=== PATIENT | female | born 1950 | race Caucasian/White ===

== ENCOUNTER 2020-03-19 14:39 | Outpatient (CLI) | payer MEDICARE, SELFPAY ==
--- NOTE | ~2020-03-19 | MR_ITS ---
EXAMINATION: MR lumbar spine wo con DATE: 03/19/2020 15:21 INDICATION: Radiculopathy, lumbar region. TECHNIQUE: Magnetic resonance imaging (MRI) of the lumbar spine was performed without intravenous con trast. Sequences included sagittal T2-weighted FSE, sagittal T2-weighted FS FSE, sagittal T1-weighted FSE, and axial T2-weighted FSE. COMPARISON: None FINDINGS: There is 3 mm anterolisthesis of L4 on L5. Vertebral body heights are normal. Intervertebra l disc heights are normal. The distal spinal cord signal intensity is normal. The conus medullaris is at L1. The following disc levels are specifically discussed: L1-L2: The disc is bulging. There is no facet joint osteoarthritis. There is no neural foraminal sten osis. There is mild central canal stenosis. L2-L3: The disc is bulging. There is mild bilateral facet joint osteoarthritis. There is mild bilater al neural foraminal stenosis. There is mild central canal stenosis. L3-L4: The disc is bulging. There is mild right and moderate left facet joint osteoarthritis. There i s mild bilateral neural foraminal stenosis. There is mild central canal stenosis. L4-L5: The disc does not extend beyond the endplate margin. There is severe bilateral facet joint ost eoarthritis. There is mild bilateral neural foraminal stenosis. There is no central canal stenosis. L5-S1: The disc is bulging. There is severe bilateral facet joint osteoarthritis. There is mild bilat eral neural foraminal stenosis. There is no central canal stenosis. IMPRESSION: 1. Mild lumbar spondylosis. Reviewed, dictated and finalized at location A. IMPRESSION: 1. Mild lumbar spondylosis.
== END 2020-03-19 14:40 | disposition home or self-care (01) ==
PROVIDERS: PCP Physician Assistant; Visit Provider Orthopaedic Surgery
DX: M47.26 Other spondylosis with radiculopathy, lumbar region (principal)
CPT/HCPCS: 72148

== ENCOUNTER 2021-06-28 11:38 | Outpatient (CLI) | payer MEDICARE, SELFPAY ==
--- NOTE | 2021-06-28 12:40 | ECG_ITS ---
Measurements Intervals [place] Rate: 79 P: 45 [place]: 151 QRS: -15 QRSD: 93 T: 13 QT: 351 QTc: 403 Interpretive Statements SINUS RHYTHM POSSIBLE LEFT ATRIAL ENLARGEMENT LOW QRS VOLTAGE IN PRECORDIAL LEADS POOR R WAVE PROGRESSION, ANTERIOR LEADS BORDERLINE T WAVE ABNORMALITY- ANTERIOR LEADS BASELINE ARTIFACT- I, III, AVL, AVF BORDERLINE ECG Electronically Signed On 06-28-2021 12:58:49 CREW LEADER/CONTROL ROOM OPERATOR by Khanh Fernandes D.O.
[2021-06-28 13:10] LABS: Basophils Absolute Auto 0.1 K/mm3 (0.0-0.1); Basophils Percent Auto 0.9 % (0.2-1.2); Eosinophils Absolute Auto 0.2 K/mm3 (0-0.3); Eosinophils Percent Auto 2.3 % (0-4.4); Hematocrit 44.4 % (37.0-47.0); Hemoglobin 14.4 g/dL (12.0-15.0); Immature Granulocyte Absolute 0.01 K/mm3 (0.00-0.031); Immature Granulocyte Percent A 0.1 % (0-0.5); Lymphocytes Absolute Auto 1.99 K/mm3 (0.9-3.2); Lymphocytes Percent Auto 28.6 % (18.3-44.2); Mean Corpuscular HGB Conc 32.4 g/dl (32-36); Mean Corpuscular Hemoglobin 30.3 pg (26-34); Mean Corpuscular Volume 93.3 fl (80-100); Mean Platelet Volume 10.3 fl (7.4-10.4); Monocytes Absolute Auto 0.7 K/mm3 (0.1-0.6); Monocytes Percent Auto 10.5 % (2.6-8.5); Neutrophils Percent Auto 57.6 % (45.5-73.1); Platelet Count Result 335 k/mm3 (150-375); Red Blood Count 4.76 M/mm3 (4.2-5.4); Red Cell Distribution Width 12.4 % (11.5-14.5)
== END 2021-06-28 11:39 | disposition home or self-care (01) ==
LOC: ANHSURGERY 11:43
PROVIDERS: PCP Physician Assistant; Visit Provider Orthopaedic Surgery
DX: M17.12 Unilateral primary osteoarthritis, left knee (principal); I10 Essential (primary) hypertension; Z01.818 Encounter for other preprocedural examination; R94.31 Abnormal electrocardiogram [ECG] [EKG]
CPT/HCPCS: 36415; 85025; 93005

== ENCOUNTER 2021-07-13 00:43 | Day surgery (SDC) | payer MEDICARE, SELFPAY ==
[2021-06-28 11:56] VITALS: BMI 31.5
--- NOTE | 2021-06-28 12:19 | PC.NURSE ---
Report to the Outpatient Waiting Room, entrance under the green pavilion located off [facility], at time _1130 on date __07/13/21 . OR Time: _1:30 PM . - You and your visitor will be asked a series of questions to screen for COVID 19 for your protection. - A mask is required within the hospital. - Only one visitor is allowed at this time. Patient visitors will be guided where to wait when not with patient. Preoperative COVID Testing Requirements: No COVID Test needed if: (proof is required; if not received patient will have Rapid Test prior to entry) - Patient has received COVID Vaccine at least 14 days prior to procedure date or - Patient has positive COVID test result within last 90 days of surgery date. COVID Test needed if above criteria is not met If not COVID vaccinated a COVID test must be conducted within 72 hours of surgery and patient is asked to isolate self from time of testing until procedure. You will go to the [facility] for your COVID testing. The [facility] is located at the corner of [address] [facility]. You will only be called if COVID results are positive and your surgeon may reschedule your elective surgery date. Patients may have clear liquids (water, carbonated beverages, clear teas, apple juice) until 3 hours prior to surgery with a maximum of 20 ounces. - No food from midnight until time of surgery - Infants may have breast milk until 4 hours before surgery, infant formula 6 hours prior to surgery. - Children will be allowed to drink immediately following surgery. If applicable, please bring a bottle or sippy cup to assist with drinking. Juice, water, soda, and popsicles are readily available. For infants on formula, please bring formula the day of surgery. Pacifiers are allowed. Take the following medications with a SIP of water the morning of surgery: ___NONE Medications to discontinue per physician ___IBUPROFEN 7 DAYS PRE OP, ALL VITAMINS AND SUPPLEMENTS 3 DAYS PRE OP Date to take last dose 07/09/21 Please no make-up, nail croatian, hairspray, perfume, deodorant, or body powder the day of surgery. No jewelry (including any body piercings) or valuables the day of surgery, leave them at home. Please take a shower or bath the night before, or the morning of, surgery with an antibacterial soap. Wear comfortable, loose fitting clothing. Children are encouraged to wear pajamas. - Jewelry must be removed prior to entering the operating room. Rings and piercings that are not removed may be cut off. - The hospital will not accept responsibility for valuables. - Please leave all valuables, including medications, at home the day of surgery. If you are going home after surgery, a licensed river driver must drive you home. - NO public transportation without another adult. - We recommend that an adult stay with you for 24 hours following discharge. - We also recommend that you do not drive, make important decision, drink alcoholic beverages, or take any drugs that were not prescribed by your health care provider for at least 24 hours after your discharge time. For Pediatric surgeries, we recommend two adults accompany the child home (only one inside the building at this time). Follow any additional instructions given to you from your surgeon. VERBAL instructions given to __PATIENT AND SPOUSE and asked if any additional questions and then verbalized understanding. Patient advised to call surgeon office or pre surgery nurse liaison [phone] if any additional questions.
[2021-06-28 12:41] VITALS: BP 134/74; PULSE 83; RESP 16; TEMP 37.1; O2SAT 97
--- NOTE | 2021-07-12 10:05 | P.PNAN_ITS ---
Anes - Initial Pre Proc Eval Procedure: Operation Date: 07/13/21 13:30 Proposed Procedures p Left Partial Knee Replacement - Kameron Meade MD Date/Time: 07/12/21 10:05 Surgeon: Kameron Meade MD Pre Op Diagnosis: Primary OA Left Knee Patient Data Age: 70 Gender: F Height: 1.57 m Weight: 78.2 kg Last Vital Signs Temp 37.1 C 06/28/21 12:41 Pulse 83 06/28/21 12:41 Resp 16 06/28/21 12:41 BP 134/74 06/28/21 12:41 Pulse Ox 97 06/28/21 12:41 Allergies Allergy/AdvReac Type Severity Reaction Status Date / Time [id number] Reductase AdvReac Muscle Pain Verified 07/13/21 11:35 Inhibitor Home Medications Medication Instructions Recorded Confirmed Type multivitamin 1 tablet PO DAILY 09/16/19 07/13/21 History verapamil 120 mg tablet 120 mg PO HS 09/16/19 07/13/21 History cholecalciferol (vitamin D3) 25 mcg PO DAILY 06/28/21 07/13/21 History cyanocobalamin (vitamin B-12) 1,000 mcg PO DAILY 06/28/21 07/13/21 History ibuprofen 800 mg PO TID PRN 06/28/21 07/13/21 History turmeric 400 mg PO DAILY 06/28/21 07/13/21 History vitamin E 400 unit PO DAILY 06/28/21 07/13/21 History Patient hx anesthesia problems: none Family hx anesthesia problems: none Results Review: All pre-operative results and documents have been reviewed as part of the pre-operative evaluation. [facility] Past Medical History Medical History Hip bursitis, left Hyperlipidemia Hypertension Left lumbar radiculitis Obesity Osteoarthritis of left knee Spondylosis of lumbar spine Surgical History Surgical History History of appendectomy History of tonsillectomy History of vaginal hysterectomy (~09/03/92) Status post right partial knee replacement (~09/05/16) Family History Family History Father Family history of arthritis Mother Family history of arthritis Family history of malignant neoplasm Social History Social History Smoking packs per day: 1 Smoking cigarettes per day: 20.0 Years smoked: 20 Smoking pack-years: 20.00 Tobacco type: cigarettes Smoking end date: 06/30/19 Alcohol intake: never Living arrangements: with family Spiritual care concerns: No Anes - Eval Final PreProcedure Day of Procedure 07/12/21 10:05 Patient weight: obese Heart: regular rate and rhythm Lungs: clear to auscultation and normal air movement Airway: Mallampati scale class II Neurological: alert and oriented Last oral intake: >/= 8 hours ASA classification: III Emergent: no Anesthetic plan: proceed Anesthesia type and monitoring: general LMA Results Review: All pre-operative results and documents have been reviewed as part of the pre-operative evaluation. Informed Consent: The patient's anesthetic plan and its attendant risks and benefits were discussed with the patient/family/POA. Questions were solicited and answers provided to the satisfaction of the patient/family/POA.
[2021-07-13] VITALS (11 sets, daily range): BP systolic 125–154; BP diastolic 72–92; PULSE 89–108; RESP 9–21; TEMP 36.3–36.8; O2SAT 92–99
--- NOTE | ~2021-07-13 | XR_ITS ---
EXAMINATION: KNEE ONE/TWO VIEW-RIGHT DATE: 07/13/2021 16:21 INDICATION: Postoperative evaluation following left knee medial unicompartmental arthroplasty TECHNIQUE: Anteroposterior and lateral views of the left knee were obtained. COMPARISON: None. FINDINGS: Left knee medial unicompartmental arthroplasty appears well seated and in near anatomic alignment. No fractures identified. Small amount of expected postoperative subcutaneous and intra-articular gas. IMPRESSION: 1. Left knee medial unicompartmental arthroplasty, negative for postoperative purposes. Reviewed, dictated and finalized at location A. ON GUARD SUPERVISOR IMPRESSION: 1. Left knee medial unicompartmental arthroplasty, negative for postoperative p urposes.
[2021-07-13] MEDS: ACETAMINOPHEN 500 MG TABLET 1000 MG PO (12:23)
[2021-07-13] MEDS: LACTATED RINGERS 1,000 ML 30 ML IV CONT ×3 (12:30→17:32)
--- NOTE | 2021-07-13 12:42 | SUR.PREOP ---
1240-INSTRUCTED BY Sandra CURRIE RN FLASK PUSHER TO NOT GIVE TRANSEXAMIC ACID IN PREOP PER DR. FIGUEREDO PREFERENCE IT WILL BE STARTED BY ANESTHESIA UPON PATIENT GOING TO OR.
--- NOTE | 2021-07-13 13:18 | P.PNAN_ITS ---
Anes - Initial Pre Proc Eval Procedure: Operation Date: 07/13/21 13:30 Proposed Procedures p Left Partial Knee Replacement - Kameron Meade MD Date/Time: 07/13/21 13:18 Surgeon: Kameron Meade MD Pre Op Diagnosis: Primary OA Left Knee Patient Data Age: 70 Gender: F Height: 1.57 m Weight: 77.2 kg Last Vital Signs Temp 36.3 C L 07/13/21 11:32 Pulse 89 07/13/21 11:32 Resp 20 07/13/21 11:32 BP 147/78 H 07/13/21 11:32 Pulse Ox 97 07/13/21 11:32 Allergies Allergy/AdvReac Type Severity Reaction Status Date / Time [id number]-PFR-VsM Reductase AdvReac Muscle Pain Verified 07/13/21 11:35 Inhibitor Home Medications Medication Instructions Recorded Confirmed Type multivitamin 1 tablet PO DAILY 09/16/19 07/13/21 History verapamil 120 mg tablet 120 mg PO HS 09/16/19 07/13/21 History cholecalciferol (vitamin D3) 25 mcg PO DAILY 06/28/21 07/13/21 History cyanocobalamin (vitamin B-12) 1,000 mcg PO DAILY 06/28/21 07/13/21 History ibuprofen 800 mg PO TID PRN 06/28/21 07/13/21 History turmeric 400 mg PO DAILY 06/28/21 07/13/21 History vitamin E 400 unit PO DAILY 06/28/21 07/13/21 History Patient hx anesthesia problems: none Family hx anesthesia problems: none Results Review: All pre-operative results and documents have been reviewed as part of the pre-operative evaluation. [facility] Past Medical History Medical History Hip bursitis, left Hyperlipidemia Hypertension Left lumbar radiculitis Obesity Osteoarthritis of left knee Spondylosis of lumbar spine Surgical History Surgical History History of appendectomy History of tonsillectomy History of vaginal hysterectomy (~09/03/92) Status post right partial knee replacement (~09/05/16) Family History Family History Father Family history of arthritis Mother Family history of arthritis Family history of malignant neoplasm Social History Social History Smoking packs per day: 1 Smoking cigarettes per day: 20.0 Years smoked: 20 Smoking pack-years: 20.00 Tobacco type: cigarettes Smoking end date: 06/30/19 Alcohol intake: never Living arrangements: with family Spiritual care concerns: No Anes - Eval Final PreProcedure Day of Procedure 07/13/21 13:18 Patient weight: obese Heart: regular rate and rhythm Lungs: clear to auscultation Airway: Mallampati scale class II Neurological: alert and oriented Last oral intake: >/= 8 hours ASA classification: III Emergent: no Anesthetic plan: proceed Anesthesia type and monitoring: general LMA and standard monitoring Results Review: All pre-operative results and documents have been reviewed as part of the pre-operative evaluation. Informed Consent: The patient's anesthetic plan and its attendant risks and benefits were discussed with the patient/family/POA. Questions were solicited and answers provided to the satisfaction of the patient/family/POA.
--- NOTE | 2021-07-13 13:21 | WPDHPUPDATE1 ---
History and Physical Update Update Date/Time: 07/13/21 13:21 History and Physical has been reviewed, including an updated exam of the patient. There are NO changes in the patient's condition. Risks, benefits, and alternatives have been discussed and questions answered. Patient agrees to proceed with procedure.
[2021-07-13] MEDS: ceFAZolin 2 GM/D5W 50 ML 2 GM/50 ML BAG IVPB (13:58)
[2021-07-13] MEDS: TRANEXAMIC ACID 1,000MG/ISO100 1,000 MG/100 ML BAG 200 MG IVPB (14:12)
[2021-07-13] MEDS: GENTAMICIN BONE CEMENT REFOBACIN 1 EACH TOPICAL (15:10)
[2021-07-13] MEDS: fentaNYL CITRATE INJ (*CRX) 100 MCG/2 ML VIAL 25 MCG IV PUSH ×4 (16:02→16:37)
[2021-07-13] MEDS: HYDROmorphone HCL INJ (*CRX) 1 MG/ML SYR 0.5 MG IV PUSH ×3 (16:25→16:50)
--- NOTE | 2021-07-13 16:26 | P.OP_ITS ---
Procedure Note - Detailed Date of Procedure 07/13/21 Pre-op Diagnosis Osteoarthritis Left Knee Post-op Diagnosis same Procedure Performed Partial knee arthroplasty, left knee, medial compartment. Surgeon Kameron Meade MD Maintenance Journeyman Britta Portillo PA-C Anesthesia general Description of Procedure The patient was given a general anesthetic. Preoperative antibiotics were given. The knee was prepped and draped in the usual sterile fashion. A longitudinal incision was created along the medial aspect of the patellar tendon. A minimally invasive optimized mid vastus approach was completed. No medial release was taken. The external alignment guide was used to cut the tibia with anatomic posterior slope. A 4 millimeter resection was taken. The spacer block technique was utilized to measure flexion and extension gaps after the osteophytes were removed. The difference was used to calculate the distal resection. The distal cutting block was utilized to cut the distal femur. The AP and chamfer block was utilized for this last cuts. The femur and tibia were sized. Range of motion and gap balancing was assessed. This was tested with the 1.5 millimeter spacer. The bony surfaces were cleaned with lavaged. Lug holes were drilled. The real components were cemented into position. Excess cement was carefully removed. The tourniquet was released. Meticulous hemostasis was maintained. The wound was closed with interrupted 1 Vicryl suture followed by a running 0 Quill suture and 2-0 Quill suture. Steri-Strips are placed in the skin the patient was extubated and brought to recovery room in stable condition. There were no complications. Physician cleaner assistant, Britta Portillo PA-C, required for surgery; including patient positioning, draping, tissue retraction, maintaining instrument position, cement removal, wound closure, and dressing placement. Implants [employer] PKR system femur size 1, tibia size 1, 8mm polyethylene insert . One batch Simplex antibiotic cement. Estimated Blood Loss -20.0 Tourniquet Time 59 Drains No Complications No immediate complications Condition stable Disposition PACU
[2021-07-13] MEDS: ONDANSETRON INJ 4 MG/2 ML VIAL IV PUSH (17:51)
--- NOTE | 2021-07-13 18:17 | SUR.PHASEII ---
PT PAIN IS CONTROLLED AND PT IS READY FOR HOME. DISCHARGED WITH .
== END 2021-07-13 18:24 | disposition home or self-care (01) ==
PROVIDERS: PCP Physician Assistant; Visit Provider Orthopaedic Surgery
PROC: (CPT 27446; principal; 2021-07-13 13:30)
DX: M17.12 Unilateral primary osteoarthritis, left knee (principal); I10 Essential (primary) hypertension; E78.5 Hyperlipidemia, unspecified; E66.9 Obesity, unspecified; Z68.31 Body mass index [BMI] 31.0-31.9, adult; Z87.891 Personal history of nicotine dependence
CPT/HCPCS: 27446; 73560; 97110; 97161; A9270; C1713; C1776; J0171; J0690; J1100; J1170; J1885; J2250; J2270; J2370; J2405; J2704; J2795; J3010; J7120

== ENCOUNTER 2023-02-10 02:14 | Day surgery (SDC) | payer MEDICARE, SELFPAY ==
[2023-02-03 14:08] VITALS: BMI 29.8
--- NOTE | 2023-02-03 14:26 | PC.NURSE ---
Report to the Outpatient Waiting Room, entrance under the green pavilion located off [facility], at time __2:30PM on date __02/10/23 . Planned Procedure Time: _3:30PM . LOCAL ANESTHESIA Time changes happen often and if your time is changed the preop area will call you the afternoon before. - You and your visitor will be asked to self-screen and do not enter if you have any COVID symptoms. - A mask is optional within the hospital at this time. Patients may have LIGHT BREAKFAST/LIGHT LUNCH ON DAY OF SURGERY. Take the following medications with a SIP of water the morning of surgery: __USUAL MORNING MEDICATION WITH EXCEPTION OF ASPIRIN PER DR CRAIG INSTRUCTIONS DO NOT STOP ANY OF YOUR OTHER PRESCRIPTION MEDICATIONS PRIOR TO SURGERY ?EXCEPT THE FOLLOWING Medications to discontinue per physician ___HOLD ASPIRIN PER DR CRAIG- PT CALLING OFFICE TODAY TO VERIFY. Please no make-up, nail armenian, hairspray, perfume, deodorant, or body powder the day of surgery. No jewelry (including any body piercings) or valuables the day of surgery, leave them at home. Please take a shower or bath the night before, or the morning of, surgery with an antibacterial soap. Wear comfortable, loose fitting clothing. Children are encouraged to wear pajamas. - Jewelry must be removed prior to entering the operating room. Rings and piercings that are not removed may be cut off. - The hospital will not accept responsibility for valuables. - Please leave all valuables, including medications, at home the day of surgery. If you are going home after surgery, a licensed inventory associate and driver must drive you home OR MAY DRIVE SELF. - NO public transportation without another adult if you receive anesthesia. - We recommend that an adult stay with you for 24 hours following discharge. - We also recommend that you do not drive, make important decision, drink alcoholic beverages, or take any drugs that were not prescribed by your health care provider for at least 24 hours after your discharge time. Follow any additional instructions given to you from your surgeon. If you or anyone in your household have experienced Covid symptoms in the past week, please notify your surgeon or the nurse liaison at the phone number below for possible testing. Telephone instructions given to _PATIENT and asked if any additional questions and then verbalized understanding. Patient advised to call surgeon office or pre surgery nurse liaison [phone] if any additional questions.
[2023-02-10] MEDS: ACETAMINOPHEN 500 MG TABLET 1000 MG PO (14:58)
[2023-02-10 15:01] VITALS: BP 125/75; PULSE 89; RESP 20; TEMP 37; O2SAT 96
--- NOTE | 2023-02-10 15:29 | WPDHPUPDATE1 ---
History and Physical Update Update Date/Time: 02/10/23 15:29 History and Physical has been reviewed, including an updated exam of the patient. There are NO changes in the patient's condition. Risks, benefits, and alternatives have been discussed and questions answered. Patient agrees to proceed with procedure.
[2023-02-10 15:40] VITALS: BP 128/58; PULSE 75; RESP 16; O2SAT 94
[2023-02-10 15:50] VITALS: BP 115/60; PULSE 75; RESP 16; O2SAT 95
[2023-02-10] MEDS: BUPIVACAINE/EPINEPHRINE 0.5% 50 ML VIAL 10 ML INFILTRATE (15:57)
[2023-02-10 16:00] VITALS: BP 142/73; PULSE 81; RESP 18; O2SAT 96
[2023-02-10 16:10] VITALS: BP 120/63; PULSE 83; RESP 16; O2SAT 95
--- NOTE | 2023-02-10 16:29 | W.PM.PROC2 ---
Procedure Note - Detailed Date of Procedure 02/10/23 Pre-op Diagnosis left carpal tunnel syndrome Post-op Diagnosis Same Procedure Performed Left Carpal tunnel release Surgeon Kameron Meade MD Anesthesia Local Description of Procedure The hand was prepped and draped in the usual sterile fashion. The proposed incision was marked using typical anatomic landmarks. 10ML 0.5% Marcaine with epinephrine was injected along the incision line and at the distal forearm. A longitudinal incision was taken sharply. Dissection was brought down to the transverse carpal ligament. Under direct vision the ligament was incised sharply. The proximal release was carried out with dissection scissors. The contents of the carpal canal were protected with a [place] elevator. The transverse carpal ligament was confirmed to be widely patent. The wound was closed with interrupted 3-0 Prolene suture. A sterile bulky dressing was placed. Patient was brought to the recovery room in stable condition. Estimated Blood Loss 1 Pathology None sent Complications No immediate complications Condition Stable Disposition PACU [facility] Billing Surgery - Charge Forward: Surgery Billing
== END 2023-02-10 16:40 | disposition home or self-care (01) ==
PROVIDERS: PCP Physician Assistant; Visit Provider Orthopaedic Surgery
PROC: (CPT 64721; principal; 2023-02-10 15:30)
DX: G56.02 Carpal tunnel syndrome, left upper limb (principal); E78.5 Hyperlipidemia, unspecified; I10 Essential (primary) hypertension; Z87.891 Personal history of nicotine dependence
CPT/HCPCS: 64721; A9270

== ENCOUNTER → 2023-06-28 08:19 | Outpatient (CLI) | payer MEDICARE, SELFPAY ==
--- NOTE | ~2023-06-28 | MR_ITS ---
MRI of the lumbar spine Clinical History: Radiculopathy Technique: Axial T2-weighted images, and sagittal T1-weighted, T2-weighted, and T2 fat-sat images wer e acquired. COMPARISON: 03/19/2020 Findings: There is no fracture or subluxation of the lumbar spine. Vertebral bodies maintain normal h eight and alignment. No suspicious bone marrow signal abnormality seen. At L1-L2, there is minimal disc bulge and mild facet arthropathy. No central canal stenosis. There is mild bilateral neural foraminal narrowing. At L2-L3, there is no disc bulge or herniation. There is mild facet arthropathy. No central canal bjorn nosis or neural foraminal narrowing. At L3-L4, there is no disc bulge or herniation. There is minimal facet joint hypertrophy. No spinal c anal stenosis. There is minimal left neural foraminal narrowing. Right neural foramen preserved. At L4-L5, there is minimal disc bulge with severe facet arthropathy. No central canal stenosis. Proba ble minimal right neural foraminal narrowing. At L5-S1, there is no disc bulge or herniation. There is severe facet arthropathy. No central canal s tenosis. There is severe left neural foraminal narrowing. Right neural foramen preserved. Paravertebral soft tissues are unremarkable. Impression: Overall mild degenerative spondylosis, as detailed above. There is severe left neural foraminal narro wing at L5-S1. Reviewed, dictated and finalized at [facility]. RAMMER Impression: Overall mild degenerative spondylosis, as detailed above. There is severe left neural foraminal narrowing at L5-S1.
== END ==
PROVIDERS: PCP Nurse Practitioner Family; Visit Provider Nurse Practitioner Family
DX: M43.06 Spondylolysis, lumbar region (principal); M48.07 Spinal stenosis, lumbosacral region; M54.16 Radiculopathy, lumbar region
CPT/HCPCS: 72148

== ENCOUNTER 2024-01-12 08:37 | Outpatient (CLI) | payer MEDICARE, SELFPAY ==
--- NOTE | ~2024-01-12 | XR_ITS ---
EXAMINATION: XR knee LT min 4V DATE: 01/12/2024 09:01 INDICATION: Presence of left artificial knee joint. TECHNIQUE: 4 views of left knee including standing views were obtained. COMPARISON: Left knee radiographs 01/13/23 FINDINGS: There is lateral subluxation of patella. There is a medial compartment arthroplasty in near -anatomic alignment. No fracture. No periprosthetic lucency to suggest loosening or infection. There is mild osteoarthritis of lateral and patellofemoral compartments. No knee joint effusion. IMPRESSION: 1. Medial compartment arthroplasty in near-anatomic alignment. 2. Mild left knee osteoarthritis. Reviewed, dictated and finalized at location A.
== END 2024-01-12 08:38 | disposition home or self-care (01) ==
PROVIDERS: PCP Physician Assistant; Visit Provider Orthopaedic Surgery
DX: Z96.652 Presence of left artificial knee joint (principal); M17.12 Unilateral primary osteoarthritis, left knee
CPT/HCPCS: 73564

== ENCOUNTER 2025-07-01 01:01 | Day surgery (SDC) | payer MEDICARE, SELFPAY ==
--- OUTSIDE RECORDS SUMMARY | 2018-11-06 02:45 | XMS_ITS | Continuity of Care Document ---
Author Organization [facility] Address [address] [place] [address] Phone Care Team Providers Care Equipment Sales Specialist Name Role Phone Reji Rolon MD Unavailable Unavailable Allergies, Adverse Reactions, Alerts Substance Reaction Status Criticality No Known Allergies Active No Inform ation Medications Medication Instructions Dosage Effective Dates (start - stop) Status Comments verapamil 120 mg tablet take 1 tablet by oral route 3 times every day 120 MG - Active aspirin 81 mg tablet,delayed release take 1 tablet by oral route every day 81 MG - Active vitamin E 400 unit capsule take 1 capsule by oral route every day 1 capsule - Active Procedures Procedure Date Office/outpatient Visit, [facility] Advance Directives Directive Yes / No Effective Date File Name No Information Encounters Encounter Description Practice Location Reason(s) For Visit Diagnoses Date Provider Providers Copied on Encounter Office/outpa tient Visit, [facility], [id number] [place] [address] [address], [place], [place], [id number], [place] tel:[phone] [facility] Professional evaluation (chief complaint) History of refractive surgeryCorne al scar, left eyeArcus senilis of both corneasAge-r elated nuclear cataract, bilateral [phone] [address] Mendoza. [address] [facility], [place], [place], [id number], [place]. tel:[phone] Referring Provider: Ana Gutierrez OD, [facility] [address] [facility] [address], [place], [address]. tel:[phone] Family History Family Member Type Diagnosis Age At Onset Mother Problem (finding) glaucoma Father Problem (finding) corneal transplant x2 r ight eye Sister Problem (finding) Diabetes mellitus Maternal grandmother Problem (finding) Diabetes mellit us Mother Problem (finding) Diabetes mellitus Payers Payer name Insurance type Covered alliance party ID Authoriza tion(s) Medicare [facility] [id number] [employer] Mdcr Supp CI [id number] Social History Type Description Quantity Date Captured Comments Alcohol Use Details No Caffeine Use Details Tobacco Use Status Occasional cigarette smoker Smoking Status Current some day smoker Smoking Tobacco Use Details Cigarette: Age Started: 47 Cigarette: No Details Available Sex Female Chief Complaint And Reason For Visit From encounter dated '11/06/2018 08:45'. evaluation (chief complaint). Description: The 67 year old female presents for evaluation of corneal haze ou per Dr. Ana Gutierrez. Patients father had 2 cornea transplants OD for unknown reasons. Patient states she has only worn glasses the last 2 years. 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 Patient states her vision seems worse the last year. Patient loves to read. Patient c/o eyes have been watering lately. Reason For Referral Reason For Referral No Information Plan Of Treatment Date Type Action Status Goal Tobacco cessation counseling completed Patient Education Cataracts: Care Instruc tions completed History Of Present Illness Encounter Date Complaint History Of Prese nt Illness evaluation The 67 year old female presents for evaluation of corneal haze ou per Dr. Ana Gutierrez. Patients father had 2 cornea transplants OD for unknown reasons. Patient states she has only worn glasses the last 2 years. 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 Patient states her vision seems worse the last year. Patient loves to read. Patient c/o eyes have been watering lately. Functional Status Date Functional Assessmen t No Information Instructions Date Instruction Additional Infor jeremiah Impression/Plan Assessments Type Assessment Date assessment History of refractive surgery Ct assessment Corneal scar, left eye 19 assessment Arcus senilis of both corneas Ct assessment Age-related nuclear cataract, bi lateral Patient Care Teams Name Effective Dates (start - stop) Status Members No Information
--- NOTE | 2025-06-20 09:21 | PC.NURSE ---
[facility] has started construction of its new state of the art ER which will open Spring 2026. With this, we anticipate parking may be a challenge for some our surgical patients and families. Parking spaces are limited but are available for all Surgical, obstetrics, and ER patients sharing this lot. If you arrive and find you are having a hard time finding a parking space, please note that we understand the challenges, please drive around the hospital and park near Hospital Entrance 1. When you enter this entrance, you can ask a volunteer to direct or take you back to the surgical waiting area to check in. We appreciate everyone?s understanding of these expected challenges while we build for your future. Report to the Outpatient Waiting Room, entrance under the green pavilion [address], at time __1:30 PM on date ___07/01/25____. Planned Procedure Time: _2:30 PM .? Time changes happen often and if your time is changed the preop area will call you the afternoon before. - You and your visitor will be asked to self-screen and do not enter if you have any COVID symptoms. Please call surgeon if you need to reschedule. - A mask is optional within the hospital at this time. MAY HAVE LIGHT BREAKFAST/LUNCH DAY OF SURGERY Take only the following medications with a SIP of water on the morning of surgery: __ROUTINE MEDICATIONS DO NOT STOP ANY OF YOUR OTHER PRESCRIPTION MEDICATIONS PRIOR TO SURGERY EXCEPT THE FOLLOWING Medications to discontinue per physician ___HOLD ASPIRIN 7 DAYS PRE OP PER DR CRAIG Date to take last dose___06/23/25 Please no make-up, nail serbian, hairspray, perfume, deodorant, or body powder the day of surgery.? No jewelry (including any body piercings) or valuables the day of surgery, leave them at home.? Please take a shower or bath the night before, or the morning of, surgery with an antibacterial soap.? Wear comfortable, loose fitting clothing.? Children are encouraged to wear pajamas. - Jewelry must be removed prior to entering the operating room.? Rings and piercings that are not removed may be cut off. - The hospital will not accept responsibility for valuables.? - Please leave all valuables, including medications, at home the day of surgery. If you are going home after surgery, a licensed locomotive driver must drive you home.? - NO public transportation without another adult if you receive anesthesia. - We recommend that an adult stay with you for 24 hours following discharge. - We also recommend that you do not drive, make important decision, drink alcoholic beverages, or take any drugs that were not prescribed by your health care provider for at least 24 hours after your discharge time. LOCAL ANESTHESIA- MAY DRIVE YOURSELF HOME Follow any additional instructions given to you from your surgeon. Telephone instructions given to ___PATIENT and asked if any additional questions and then verbalized understanding. Patient advised to call surgeon office or pre surgery nurse liaison [phone] if any additional questions.
[2025-06-20 09:32] VITALS: BMI 28.7
--- OUTSIDE RECORDS SUMMARY | 2025-07-01 01:04 | XMS_ITS | Encounter Summary ---
Author Organization [facility] Healthcare Address [address] [place] [address] Care Team Providers Care Personal Companion Name Role Phone Timmy Pang Primary Care Provider [phone] Encounter Details Date Type Department Care Team ([facility] st Contact Info) Description 05/28/2025 Results Follow-Up [facility] Medical [facility] [address] [place] [id number] Emmy Porter MD [address] [place] [address] Dexa Axial Skeleton Bone Density 1 or 2 Site Social History Tobacco Use Types Packs/Day Years Used Date Smoking Tobacco: Former Cigarettes Smokeless Tobacco: Never Comments:Smoking History Pac ks/day: 1 Packs Alcohol Use Standard Drinks/Week Comments No 0 (1 standard drink = 0.6 oz pur e alcohol) AUDIT-C Answer Date Recorded Q1: How often do you have a drink containing alcohol? Never 01/05/2024 Q2: How many drinks containi ng alcohol do you have on a typical day when you are drinking? Patient does not drink Q3: How often do you have si x or more drinks on one occasion? Never 01/05/2024 Personal Safety Answer Date Recorded Have you ever been in or are you currently in a harmful physical or emotional relationship or is someone making you feel afraid or unsafe? 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
--- OUTSIDE RECORDS SUMMARY | 2025-07-01 01:04 | XMS_ITS | Clinical Summary ---
Author Organization [facility] Address [address] [place] [id number] Care Team Providers Care Assurance Associate Name Role Phone Timmy Pang Primary Care Provider [phone] Allergies No known active allergies Medications amLODIPine (NORVASC) 5 mg tablet Take 1 tablet (5 mg total) by mouth daily 12/11/2023 Active Active Problems Problem Noted Date Diagnosed Date Personal history of colonic polyps 07/18/2023 Obesity (BMI 30-39.9) 04/07/2023 Tobacco use 08/06/2012 Overview (11/23/2016): Tobacco use Hyperlipidemia 08/06/2012 Overview (11/23/2016): Hyperlipidemia Hypertension 08/06/2012 Overview (11/24/2016): Hypertension Encounters Date Type Department Care Team Description 05/28/2025 Results Follow-Up [facility] [address] [place] [address] Jany Porter MD Dexa Axial Skeleton Bone Density 1 or 2 Site 05/27/2025 7:46 AM CDT - 05/27/2025 11:59 PM CDT Hospital Encounter [facility] [address] [place] [address] Postmenopausal state Discharge Disposition: Discharge to home or self care 04/16/2025 10:30 AM CDT Ancillary Procedure [facility] [address] [place] [address] Screening mammogram, encounter for 04/16/2025 9:40 AM CDT Office Visit [facility] [address] [place] [address] Jany Porter MD Encounter for gynecological examination without abnormal finding (Primary Dx); Postmenopausal state from Last 3 Months Surgical History Surgery Date Site/Laterality Comments APPENDECTOMY Appendectomy KNEE SURGERY R knee surgery OTHER SURGICAL HISTORY CPKI laser treatment TOTAL ABDOMINAL HYSTERECTOMY W/ BILATERAL SALPINGOOPHORECTOMY 08/21/1992 - 08/20/1993 Menorrhagia, ovarian cyst TONSILLECTOMY childhood DILATION AND CURETTAGE OF UTERUS '83, REPLACEMENT TOTAL KNEE 08/21/2020 - 08/20/2021 Left COLONOSCOPY 01/19/2017 - 02/17/2017 CARPAL TUNNEL RELEASE 08/21/2022 - 08/20/2023 Medical History Medical History Date Comments Hypertension Hypertension Hyperlipidemia Hyperlipidemia Sciatica Family History Medical History Relation Name Comments Hypertension Father Hypertension; Stroke Father Stroke; Stroke Maternal Grandfather Stroke; Breast cancer Mother Cancer, breast ; Diabetes Mother Diabetes mellit us; Hypertension Mother Hypertension; Other Mother Benign colon tu mor; Colon cancer Mother's Brother Cancer, col on; Breast cancer Mother's Sister Cancer, smith ast; x 2 Diabetes Other Diabetes mellit us; Relation Name Status Comments Father Maternal Grandfather Mother Mother's Brother Mother's Sister Other Social History Tobacco Use Types Packs/Day Years Used Date Smoking Tobacco: Former Cigarettes Smokeless Tobacco: Never Tobacco Cessation:Counseling Given: Not Answered Comments:Smoking History Packs/day: 1 Packs Alcohol Use Standard Drinks/Week Comments [...] on file 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 Gender Identity Female 05/20/2025 11:56 AM CDT Sexual Orientation Not on file Occupation Industry Job Start Date Job End Date Retired Not on file Not on file Not on file Obstetrics History Para Term AB IAB SAB Ectopic Multiple Livin g Live Births 3 2 2 0 1 2 2 Date Outcome GA Total Labor Labor/2nd/3rd Weight Sex Type Anes PTL Shilpi A1 A5 Name Clin Term Term AB Last Filed Vital Signs Vital Sign Reading Time Taken Comments Blood Pressure 142/90 04/16/2025 9:42 AM CDT Pulse 66 01/05/2024 9:17 AM CDT Temperature 36.8 C (98.3 F) 01/05/2024 9:17 AM CDT Respiratory Rate 16 01/05/2024 9:17 AM CDT Oxygen Saturation 97% 01/05/2024 9:17 AM CDT Inhaled Oxygen Concentration - - Weight 72.1 kg (158 lb 15.2 oz) 025 10:26 AM CDT Height 157.5 cm (5' 2) 04/16/2025 10:2 6 AM CDT Body Mass Index 29.07 04/16/2025 10:26 AM CDT Plan of Treatment Health Maintenance Due Date Last Done Comments Depression Screening 1950 Hepatitis C Screening 1950 DTaP/Tdap/Td Vaccine (1 - Tdap) 11/25/1962 Hepatitis B Screening 11/25/1969 Pneumococcal vaccine 65+ (1 of 1 - PCV) 11/25/2001 Well Visit 65+ 11/25/2016 Fall Risk Assessment 01/04/2025 01/05/2024 Influenza Vaccine (#1) 2025 07/03/2017 Breast Cancer Screening-Mammogram 04/16/2026 04/16/2025, 04/10/2024, 04/07/2023, Additional history exists Osteoporosis Screening-Bone Density Scan 05/27/2027 05/27/2025 Colon Cancer Screening-Colonoscopy 01/04/2034 01/05/2024, 02/01/2017, 08/02/2011 Zoster Vaccine Completed 12/20/2023, 09/22/2023 Colon Cancer Screening-CT Colonography Discontinued 01/05/2024, 02/01/2017, 08/02/2011 Colon Cancer Screening-DNA Stool Discontinued 01/05/2024, 02/01/2017, 08/02/2011 Colon Cancer Screening-FIT Discontinued 01/04, 02/01/2017, 08/02/2011 Colon Cancer Screening-Sigmoidoscopy Discontinued 01/05/2024, 02/01/2017, 08/02/2011 Procedures Procedure Name Priority Date/Time Associated Diagnosis Comments DEXA AXIAL SKELETON BONE DENSITY 1 OR MORE SITES Schedule Routine, Read Routine (OP Routine) 05/27/2025 7:57 AM CDT Postmenopausal state SCREENING MAMMOGRAM BILATERAL W REYNOLD Schedule Routine, Read Routine (OP Routine) 04/16/2025 10:24 AM CDT Screening mammogram, encounter for COLONOSCOPY 01/05/2024 8:01 AM CDT from Last 3 Months or Most Recently Relevant to Health Maintenance Results * Dexa Axial Skeleton Bone Density 1 or 2 Site (05/27/2025 7:57 AM CDT) Anatomical Region Laterality Modality Body N/A Other 05/27/2025 11:3 2 AM CDT Narrative 05/27/2025 11:33 AM CDT EXAM DESCRIPTION: DEXA AXIAL SKELETON BONE DENSITY 1 OR MORE SITES REASON FOR STUDY: 74 y/o year old F with given history of: see dx Baseline screening. Postmenopausal Occasional Caregiver/Model: [employer] SL (S/N [id number]) Facility LSC value of 0.022 for the AP spine, 0.027 for the femur, and 0.023 for the forearm. CLINICAL INFORMATION: Current height: 62 inches Maximum height: 62 inches Weight: 159 pounds Risk factors: Postmenopausal COMPARISON: None available FINDINGS: AP LUMBAR SPINE L1-L4: Total BMD is 1.047 g/cm2 T-score is 0.0 LEFT HIP: Total BMD is 0.888 g/cm2 T-score is -0.4 Femoral neck BMD is 0.631 g/cm2 T-score is -2.0 FRAX: 10 year risk for a major osteoporotic fracture is 12 %, 10 year risk for a hip fracture is 2.7 % Per National Osteoporosis Foundation guidelines, this patient does not meet the criteria for pharmacological treatment of patients with FRAX 10 year major osteoporotic fracture risk scores of = or greater than 20% or a 10 year probability of a hip fracture = or greater than 3%, to reduce fracture risk. Additional factors such as frequent falls are not represented in FRAX and warrant individual clinical judgment. IMPRESSION: 1. Low bone mass REFERENCE: Bone mineral density: T-Score: Normal (T-score above or = -1.0) Low bone mass (T-score between -1.0 and -2.5) replaces the previously used term osteopenia Osteoporosis (T-score = or below -2.5) Z-Score: Within the expected range for age (Z-score above -2.0) Below the expected range for age (Z-score is -2.0 or below) Please see below follow up recommendations. Medical evaluation for secondary causes of low bone mineral density may be appropriate. FRAX is a World Health Organization validated fracture risk assessment tool that calculates a person's 10 year probability of a major osteoporosis related fracture and hip fracture. According to the National Osteoporosis Foundation guidelines, postmenopausal women and men age 50 or older with low bone mass and a 10 year probability of a major osteoporosis related fracture = or greater than 20% or a 10 year probability of a hip fracture = or greater than 3% should be considered for pharmacological treatment for the prevention of osteoporosis. For further information, including treatment recommendations, please refer to the 2019 ISCD Official Positions (http://www.iscd.org) and the NOF's Clinician's Guide to Prevention and Treatment of Osteoporosis (http://www.nof.org/professionals/clinical-guidelines) THIS IS AN ELECTRONICALLY VERIFIED FINAL REPORT 05/27/2025 11:33 AM - Electronically signed by Neftali AGUIAR: COSME Report ID: [id number] Reading Location: [id number] Note Neftali Rubalcava MD - 05/27/2025 EXAM DESCRIPTION: DEXA AXIAL SKELETON BONE DENSITY 1 OR MORE SITES REASON FOR STUDY: 74 y/o year old F with given history of: see dx Baseline screening. Postmenopausal Occasional Caregiver/Model: [employer] SL (S/N [id number]) Facility LSC value of 0.022 for the AP spine, 0.027 for the femur, and0.023 for the forearm. CLINICAL INFORMATION: Current height: 62 inches Maximum height: 62 inches Weight: 159 pounds Risk factors: Postmenopausal COMPARISON: None available FINDINGS: AP LUMBAR SPINE L1-L4: Total BMD is 1.047 g/cm2 T-score is 0.0 LEFT HIP: Total BMD is 0.888 g/cm2 T-score is -0.4 Femoral neck BMD is 0.631 g/cm2 T-score is -2.0 FRAX: 10 year risk for a major osteoporotic fracture is 12 %, 10 year risk for ahip fracture is 2.7 % Per National Osteoporosis Foundation guidelines, this patient does notmeet the criteria for pharmacological treatment of patients with FRAX 10 yearmajor osteoporotic fracture risk scores of = or greater than 20% or a 10 year probability of a hip fracture = or greater than 3%, to reduce fracturerisk. Additional factors such as frequent falls are not represented in FRAX and warrant individual clinical judgment. IMPRESSION: 1. Low bone mass REFERENCE: Bone mineral density: T-Score: Normal (T-score above or = -1.0) Low bone mass (T-score between -1.0 and -2.5) replaces thepreviously used term osteopenia Osteoporosis (T-score = or below -2.5) Z-Score: Within the expected range for age (Z-score above -2.0) Below the expected range for age (Z-score is -2.0 or below) Please see below follow up recommendations. Medical evaluation forsecondary causes of low bone mineral density may be appropriate. FRAX is a World Health Organization validated fracture risk assessmenttool that calculates a person's 10 year probability of a major osteoporosisrelated fracture and hip fracture. According to the National OsteoporosisFoundation guidelines, postmenopausal women and men age 50 or older with low bonemass and a 10 year probability of a major osteoporosis related fracture = or greater than 20% or a 10 year probability of a hip fracture = or greaterthan 3% should be considered for pharmacological treatment for the preventionof osteoporosis. For further information, including treatment recommendations, please referto the 2019 ISCD Official Positions (http://www.iscd.org) and the NOF's Clinician's Guide to Prevention and Treatment of Osteoporosis (http://www.nof.org/professionals/clinical-guidelines) THIS IS AN ELECTRONICALLY VERIFIED FINAL REPORT 05/27/2025 11:33 AM - Electronically signed by Neftali Rubalcava M.D. MF: COSME Report ID: [id number] Reading Location: [place] [address] [place] Jany Porter MD IMG DXA PROCEDURES Fi nal Result * Screening Mammogram Bilateral W Reynold (04/16/2025 10:24 AM CDT) Anatomical Region Laterality Modality Breast Bilateral Mammography Impressions 04/16/2025 10:39 AM CDT There is no mammographic evidence of malignancy. A 1 year screening mammogram is recommended. BI-RADS: 2 - Benign. The patient has been or will be contacted. The patient will be entered into a reminder system with a target due date of 1 year for her next mammogram. Narrative 04/16/2025 10:39 AM CDT EXAMINATION: SCREENING MAMMOGRAM BILATERAL W REYNOLD ORDERING HEALTHCARE PROVIDER: JANY PORTER HISTORY: Routine screening mammography. COMPARISON: 04/10/2024, 04/07/2023, 03/03/2022, 02/16/2021, 02/14/2020, 02/10/2020 TECHNIQUE: CC and MLO views of the bilateral breasts were obtained with digital technique using breast tomosynthesis with C view. Computer aided detection was utilized. FINDINGS: DENSITY: There are scattered fibroglandular elements in the bilateral breasts. BREASTS: There are bilateral benign microcalcifications. A right breast nodule is stable. There are no suspicious masses, suspicious calcifications, or other suspicious findings in either breast. There has been no suspicious interval change. us Jany Sarah Porter MD IMG MAMMO PROCEDURES Final Result * Colonoscopy (01/05/2024 8:01 AM CDT) Anatomical Region Laterality Modality Other Narrative Procedure Note Aubrey Smith MD - 01/05/2024 8:01 AM CDT [facility] Patient Name: Rosalva Patel Procedure Date: 01/05/2024 8:01 AM Date of : 1950 Admit Type: Outpatient Age: 73 Gender: Female Attending MD: Aubrey Smith M.D. Room: [facility] RO[facility] 1 Note Status: Finalized Patient Profile: This is a 73 year old female. History of colonpolyps. No family history of colon cancer Procedure: Colonoscopy Indications: High risk colon cancer surveillance: Personalhistory of colonic polyps, Last colonoscopy: January 2017 Referring MD: HALLEY RatliffC Providers: Aubrey Smith M.D. Impression: - One 12 mm polyp in the sigmoid colon, removedwith a cold snare. Resected and retrieved. Clip (MR conditional) was placed. 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 - Diverticulosis in the sigmoid colon. - Internal hemorrhoids. Recommendation: - Await pathology results. - Repeat colonoscopy in 5 years for surveillance. - Continue present medications. Medicines: Monitored Anesthesia Care Complications: No immediate complications. Estimated Blood Loss: Estimated blood loss: none. Procedure: Pre-Anesthesia Assessment: - Prior to the procedure, a History and Physicalwas performed, and patient medications and allergieswere reviewed. The patient's tolerance of previous anesthesia was also reviewed. The risks andbenefits of the procedure and the sedation options and risks were discussed with the patient. All questions were answered, and informed consent was obtained. Prior Anticoagulants: The patient has taken noanticoagulant or antiplatelet agents. ASA Grade Assessment: Per anesthesia note and evaluation. After reviewing the risks and benefits, the patient was deemed in satisfactory condition to undergo the procedure. The benefits, risks and alternatives of theprocedure and sedation were discussed and informed consentwas obtained. All questions were answered. Please referto the signed informed consent document in the medical record. The bowel preparation used was Miralax and bisacodyl tablets via split dose instruction. The scope was passed under direct vision. The Pediatric Colonoscope [id number]-[id number] was introducedthrough the anus and advanced to the the cecum, identifiedby appendiceal orifice and ileocecal valve. Thequality of the bowel preparation was good. Bowel prep was administered using a split dose. Findings: The perianal and digital rectal examinations were normal. The descending colon, transverse colon, ascending colon and cecum appeared normal. A 12 mm polyp was found in the sigmoid colon. The polyp was sessile.The polyp was removed with a cold snare. Resection and retrieval were complete. To prevent bleeding after the polypectomy, one hemostaticclip was successfully placed (MR conditional). 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 There was no bleeding at the end of the procedure. Many small-mouthed diverticula were found in the sigmoid colon. Internal hemorrhoids were found during retroflexion. The hemorrhoids were small. Electronically signed by Aubrey Smith M.D. Aubrey Smith M.D. 01/05/2024 9:04:23 AM Number of Addenda: 0 Note Initiated On: 01/05/2024 8:01 AM Procedure Code(s): --- Professional --- 17729, Colonoscopy, flexible; with removal of tumor(s), polyp(s), or other lesion(s) by snare technique Diagnosis Code(s): --- Professional --- K64.8, Other hemorrhoids D12.5, Benign neoplasm of sigmoid colon K57.30, Diverticulosis of large intestine without perforation orabscess without bleeding Z86.010, Personal history of colonic polyps CPT copyright 2020 [place] [employer]. All rights reserved. The codes documented in this report are preliminary and upon alteration workroom supervisor reviewmay be revised to meet current compliance requirements. Recognized by the [place] [employer] for promoting quality in endoscopy Aubrey Smith MD ENDOSCOPY PROCEDURES Final Result from Last 3 Months or Most Recently Relevant to Health Maintenance Insurance [employer] MEDICARE COMMERCIAL GENERIC AETNA SENIOR SUPPLEMENT Advance Directives For more information, please contact: [phone] * Full Code (Latest Code Status on File) Date Activated Date Inactivated Comments 01/05/2024 7:52 AM 01/05/2024 1:42 PM * Full Code Date Activated Date Inactivated Comments 01/05/2024 7:52 AM 01/05/2024 7:52 AM Care Teams Assurance Associate Relationship Specialty Start Date End Date Timmy Pang PA [address] [place] [address] PCP - General 02/01/17
--- OUTSIDE RECORDS SUMMARY | 2025-07-01 01:04 | XMS_ITS | Data Portability ---
[facility] Organization [facility] Address [address] [place] [address] Care Team Providers Care Travel Manager Name Role Phone HARVEY PANG Primary Care Provider [phone] Assessment No assessment recorded. Plan of Treatment Reminders Order Date Submit Date Provider Last Modified By Organization Details Last Modified Time Details Appointments None recorded. Lab CBC 2024 025 [facility], [address] [facility], [facility] [address], [address], 5 09:15:47 CMP, serum or plasma 2024 025 [facility], [address] [place] [address], [facility] [address], [address], 5 09:15:44 lipid panel, serum 2024 025 [facility], [address] [place] [address], [facility] 2, [place], [address], 5 09:15:43 HbA1c (hemoglobi n A1c), blood 2024 025 [facility], [address] [facility], [facility] 2, [place], [address], 5 09:15:46 CBC 2023 024 [facility], [address] [facility], [facility] 2, [place], [address], 4 10:11:20 CMP, serum or plasma 2023 024 [facility], [address], [place], [address], 4 10:11:18 HbA1c (hemoglobi n A1c), blood 2023 024 [facility], [address], [place], [address], 4 10:11:20 lipid panel, serum 2023 024 [facility], [address], [place], [address], 4 10:11:18 CBC 2023 024 [facility], [address], [place], [address], 4 06:35:04 CMP, serum or plasma 2023 024 [facility], [address], [place], [address], 4 06:35:03 lipid panel, serum 2023 024 [facility], [address], [place], [address], 4 06:35:02 HbA1c (hemoglobi n A1c), blood 2023 024 NATALIE In-Office Order, Internal Use Only DO Not Attach Compendium DO Not Attach Compendium, Do Not Delete/merge, [id number] 4 11:25:36 Referral None recorded. Procedures None recorded. Surgeries None recorded. Imaging electromyo gram + nerve conduction study 2024 025 NATALIE [facility], [address], [place], [address], 5 21:25:58 Medication Orders amoxicilli n 875 mg tablet 2024 025 [facility] [employer][id number], [address], [place], [place], [id number], 5 15:02:14 amlodipine 5 mg tablet 2024 025 [id number], [address], [place], [place], [id number], 5 10:25:07 celecoxib 200 mg capsule 2023 025 [id number], [address], [place], [place], [id number], 5 09:54:08 amlodipine 5 mg tablet 2023 024 [facility]INDEN [id number], [address], [place], [place], [id number], 4 11:07:49 amoxicilli n 875 mg tablet 2023 024 [facility] [employer] [id number], [address], [place], [place], [id number], 5 15:01:48 Patient TargetsNo targets recorded. Patient Instructions Encounter Date Encounter Id Patient Instructions Last Modified By Organization Details Last Modified Time 09/01/2023 [id number] osteoarthritis: care instructions jnanney Not available 09/01/2023 11:07:40 A healthy lifestyle: care instructions jnanney Not available 09/01/2023 11:07:40 learning about high blood pressure jnanney Not available 09/01/2023 11:07:40 Acute Sinusitis: Care Instructions jnanney Not available 09/01/2023 11:07:39 04/26/2024 [id number] A healthy lifestyle: care instructions jnanney Not available 04/26/2024 11:51:01 learning about high blood pressure jnanney Not available 04/26/2024 11:51:01 advance care planning: care instructions jnanney Not available 04/26/2024 11:51:01 preventing falls : care instructions jnanney Not available 04/26/2024 11:51:01 Quitting Tobacco : Care Instructions jnanney Not available 04/26/2024 11:51:01 Medicare [facility] Preventive Checklist jnanney Not available 04/26/2024 11:51:01 eating healthy foods: care instructions jnanney Not available 04/26/2024 11:51:01 AD8 Dementia Screening Interview jnanney Not available 04/26/2024 11:51:01 10/25/2024 [id number] A healthy lifestyle: care instructions jnanney Not available 10/25/2024 10:23:43 03/26/2025 [id number] A healthy lifestyle: care instructions jnanney Not available 03/26/2025 15:24:14 carpal tunnel syndrome: care instructions jnanney Not available 03/26/2025 15:24:14 carpal tunnel syndrome: exercises jnanney Not available 03/26/2025 15:24:14 Reason for Referral None Reported. Results Created Date Observation Date Name Description Value Unit Range Abnormal Flag Note LastModifiedBy Organization Detail LastModifiedTime 12/03/1912/02/2022 LIPID PANEL cholesterol, total 348.8 mg/dL 140.0- 200.0 above high normal Not Available [facility] ([facility]) [address] [place], [address], 12/03/2022 06:16:24 12/03/1912/02/2022 LIPID PANEL triglyceride s 137 mg/dL <=150 Not Available [facility] ([facility]) [address] [place], [address], 12/03/2022 06:16:24 12/03/1912/02/2022 LIPID PANEL HDL cholesterol 86.2 mg/dL 40.0-1 00.0 Not Available [facility] ([facility]) [address] [place], [address], 12/03/2022 06:16:24 12/03/19 23 12/02/2022 LIPID PANEL VLDL cholesterol elton 27.40 mg/dL 5.00-4 0.00 Not Available [facility] ([facility]) [address] [place], [address], 12/03/2022 06:16:24 12/03/19 23 12/02/2022 LIPID PANEL LDL chol calc (rust) 238.1 Not Available [facility] ([facility]) [address] [facility] [place], [address], 12/03/2022 06:16:24 12/03/19 23 12/02/2022 COMP. METAB OLIC PANEL (14) glucose 104 mg/dL 65-99 above high normal ANION GP 19.0 mmol/ L N OSMOL 278.0 mOsM/ L N REFER ENCE RANGE : 275.0 -301. 0 Not Available [facility] ([facility]) [address] [place], [address], 12/03/2022 06:16:24 12/03/19 23 12/02/2022 COMP. METAB OLIC PANEL (14) BUN 18 mg/dL 8-26 Not Available [facility] ([facility]) [address] [place], [address], 12/03/2022 06:16:24 12/03/19 23 12/02/2022 COMP. METAB OLIC PANEL (14) creatinine 0.55 mg/dL 0.50-1 .40 Not Available [facility] ([facility]) [address] [place], [address], 12/03/2022 06:16:24 12/03/19 23 12/02/2022 COMP. METAB OLIC PANEL (14) eGFR 98 mL/mi n/1.7 3 >=60 Not Available [facility] ([facility]) [address] [place], [address], 12/03/2022 06:16:24 12/03/19 23 12/02/2022 COMP. METAB OLIC PANEL (14) BUN/creatini ne ratio 33.0 Not Available [facility] ([facility]) [address] [facility] [place], [address], 12/03/2022 06:16:24 12/03/19 23 12/02/2022 COMP. METAB OLIC PANEL (14) sodium 139.0 mmol/ L 136.0- 144.0 Not Available [facility] ([facility]) [address] [facility] [place], [address], 12/03/2022 06:16:24 12/03/19 23 12/02/2022 COMP. METAB OLIC PANEL (14) potassium 4.6 mmol/ L 3.5-5. 3 Not Available [facility] ([facility]) [address] [facility] [place], [address], 12/03/2022 06:16:24 12/03/19 23 12/02/2022 COMP. METAB OLIC PANEL (14) chloride 100 mmol/ l 101-11 1 below low normal Not Available [facility] ([facility]) [address] [facility] [place], [address], 12/03/2022 06:16:24 12/03/19 23 12/02/2022 COMP. METAB OLIC PANEL (14) carbon dioxide, total 24.6 mmol/ L 21.0-3 2.0 Not Available [facility] ([facility]) [address] [facility] [place], [address], 12/03/2022 06:16:24 12/03/19 23 12/02/2022 COMP. METAB OLIC PANEL (14) calcium 9.9 mg/dL 8.2-10 .0 Not Available [facility] ([facility]) [address] [facility] [place], [address], 12/03/2022 06:16:24 12/03/19 23 12/02/2022 COMP. METAB OLIC PANEL (14) protein, total 6.9 g/dL 6.7-8. 2 Not Available [facility] ([facility]) [address] [place], [address], 12/03/2022 06:16:24 12/03/19 23 12/02/2022 COMP. METAB OLIC PANEL (14) albumin 4.6 g/dL 3.5-5. 5 Not Available [facility] ([facility]) [address] [facility], [place], [address], 12/03/2022 06:16:24 12/03/19 23 12/02/2022 COMP. METAB OLIC PANEL (14) globulin, total 2.3 g/dL 1.5-4. 5 Not Available [facility] ([facility]) [address] [place], [address], 12/03/2022 06:16:24 12/03/19 23 12/02/2022 COMP. METAB OLIC PANEL (14) A/G ratio 2.0 Not Available [facility] ([facility]) [address] [place], [address], 12/03/2022 06:16:24 12/03/19 23 12/02/2022 COMP. METAB OLIC PANEL (14) bilirubin, total 0.5 mg/dL 0.0-1. 2 Not Available [facility] ([facility]) [address] [place], [address], 12/03/2022 06:16:24 12/03/19 23 12/02/2022 COMP. METAB OLIC PANEL (14) alkaline phosphatase 87.9 IU/L 42.0-1 21.0 Not Available [facility] ([facility]) [address] [place], [address], 12/03/2022 06:16:24 12/03/19 23 12/02/2022 COMP. METAB OLIC PANEL (14) AST (SGOT) 17.0 U/L 10.0-4 2.0 Not Available [facility] ([facility]) [address] [place], [address], 12/03/2022 06:16:24 12/03/19 23 12/02/2022 COMP. METAB OLIC PANEL (14) ALT (SGPT) 14.7 U/L 10.0-6 0.0 Not Available [facility] ([facility]) [address] [place], [address], 12/03/2022 06:16:24 12/03/19 23 12/02/2022 CBC, PLATE LET, NO DIFFE RENTI AL WBC 5.0 K/uL 3.4-10 .8 Not Available [facility] ([facility]) [address] [place], [address], 12/03/2022 06:16:26 12/03/19 23 12/02/2022 CBC, PLATE LET, NO DIFFE RENTI AL RBC 4.9 M/uL 4.2-5. 4 Not Available [facility] ([facility]) [address] [place], [address], 12/03/2022 06:16:26 12/03/1912/02/2022 CBC, PLATE LET, NO DIFFE RENTI AL hemoglobin 14.3 g/dL 11.5-1 5.5 Not Available [facility] ([facility]) [address] [place], [address], 12/03/2022 06:16:26 12/03/1912/02/2022 CBC, PLATE LET, NO DIFFE RENTI AL hematocrit 44.8 % 36.0-4 8.0 Not Available [facility] ([facility]) [address] [place], [address], 12/03/2022 06:16:26 12/03/19 23 12/02/2022 CBC, PLATE LET, NO DIFFE RENTI AL MCV 91 fL 80-95 Not Available [facility] ([facility]) [address] [facility], [place], [address], 12/03/2022 06:16:26 12/03/19 23 12/02/2022 CBC, PLATE LET, NO DIFFE RENTI AL MCH 29 pg 27-32 Not Available [facility] ([facility]) [address] [facility], [place], [address], 12/03/2022 06:16:26 12/03/1912/02/2022 CBC, PLATE LET, NO DIFFE RENTI AL MCHC 32 g/dL 32-36 Not Available [facility] ([facility]) [address] [facility], [place], [address], 12/03/2022 06:16:26 12/03/1912/02/2022 CBC, PLATE LET, NO DIFFE RENTI AL RDW 13.0 % 11.5-1 4.5 Not Available [facility] ([facility]) [address] [place], [address], 12/03/2022 06:16:26 12/03/1912/02/2022 CBC, PLATE LET, NO DIFFE RENTI AL platelets 321 K/uL 155-37 9 MPV 11.4 FL 8.9-1 2.7 N Not Available [facility] ([facility]) [address] [place], [address], 12/03/2022 06:16:26 12/03/1912/02/2022 CBC, PLATE LET, NO DIFFE RENTI AL NRBC 0 % Not Available [facility] ([facility]) [address] [place], [address], 12/03/2022 06:16:26 12/03/19 23 12/03/2022 TSH RFX ON ABNOR MAL TO FREE T4 TSH 0.676 uIU/m L 0.450- 4.500 Not Available [facility] ([facility]) [address] [facility], [place], [address], 12/03/2022 10:11:14 12/03/19 23 12/03/2022 HEMOG LOBIN A1C hemoglobin A1C 6.2 % 4.8-5. 6 above high normal Predi abete s: 5.7 - 6.4 Diabe ana: >6.4 Glyce eladio contr ol for adult s with diabe ana: <7.0 Not Available [facility] ([facility]) [address] [facility], [place], [address], 12/03/2022 10:11:15 12/03/19 23 12/03/2022 CARDI OVASC ULAR REPOR T interpretati on Note Suppl emboom al repor t is avail able. Not Available [facility] ([facility]) [address] [facility], [place], [address], 12/03/2022 06:16:25 12/03/19 23 12/03/2022 CARDI OVASC ULAR REPOR T pdf . Not Available [facility] ([facility]) [address] [facility], [place], [address], 12/03/2022 06:16:25 09/01/19 24 09/01/2023 LIPID PANEL cholesterol, total 348 mg/dL 100-19 9 above high normal Not Available [facility] [address] [place], [address], 09/02/2023 06:35:02 09/01/19 24 09/01/2023 LIPID PANEL triglyceride s 127 mg/dL 0-149 Not Available [facility] [address] [place], [address], 09/02/2023 06:35:02 09/01/19 24 09/01/2023 LIPID PANEL HDL cholesterol 95 mg/dL 40-999 Not Available [facility] [address] [place], [address], 09/02/2023 06:35:02 09/01/19 24 09/01/2023 LIPID PANEL VLDL cholesterol elton 25 mg/dL 5-40 Not Available [address], [address], 09/02/2023 06:35:02 09/01/19 24 09/01/2023 LIPID PANEL LDL chol calc (nih) 247 mg/dL 0-99 above high normal Not Available [address], [address], 09/02/2023 06:35:02 09/01/19 24 09/01/2023 COMP. METAB OLIC PANEL (14) glucose 104 mg/dL 70-99 above high normal Not Available [address], [address], 09/02/2023 06:35:03 09/01/19 24 09/01/2023 COMP. METAB OLIC PANEL (14) BUN 21 mg/dL 8-27 Not Available [facility] & [address], [address], 09/02/2023 06:35:03 09/01/19 24 09/01/2023 COMP. METAB OLIC PANEL (14) creatinine 0.66 mg/dL 0.76-1 .27 below low normal Not Available [address], [address], 09/02/2023 06:35:03 09/01/19 24 09/01/2023 COMP. METAB OLIC PANEL (14) eGFR 94 >=60 Units for eGFR value s are mL/mi n/1.7 3 The eGFR Calcu latio n has not been valid ated for patie nts under the age of 18. If test resul ts are displ ayed for a patie nt under the age of 18, disre carmen that value . Not Available [address], [address], 09/02/2023 06:35:03 09/01/19 24 09/01/2023 COMP. METAB OLIC PANEL (14) BUN/creatini ne ratio 31 10-28 above high normal Not Available [address], [address], 09/02/2023 06:35:03 09/01/19 24 09/01/2023 COMP. METAB OLIC PANEL (14) sodium 138 mmol/ L 134-14 4 Not Available [address], [address], 09/02/2023 06:35:03 09/01/19 24 09/01/2023 COMP. METAB OLIC PANEL (14) potassium 4.9 mmol/ L 3.5-5. 2 Not Available [address], [address], 09/02/2023 06:35:03 09/01/19 24 09/01/2023 COMP. METAB OLIC PANEL (14) chloride 100 mmol/ L 96-106 Not Available [address], [address], 09/02/2023 06:35:03 09/01/19 24 09/01/2023 COMP. METAB OLIC PANEL (14) carbon dioxide, total 23 mmol/ L 20-29 Not Available [address], [address], 09/02/2023 06:35:03 09/01/19 24 09/01/2023 COMP. METAB OLIC PANEL (14) calcium 9.7 mg/dL 8.7-10 .3 Not Available [address], [address], 09/02/2023 06:35:03 09/01/19 24 09/01/2023 COMP. METAB OLIC PANEL (14) protein, total 6.6 g/dL 6.0-8. 5 Not Available [address], [address], 09/02/2023 06:35:03 09/01/19 24 09/01/2023 COMP. METAB OLIC PANEL (14) albumin 4.5 g/dL 3.8-4. 8 Not Available [address], [address], 09/02/2023 06:35:03 09/01/19 24 09/01/2023 COMP. METAB OLIC PANEL (14) globulin, total 2.1 g/dL 1.5-4. 5 Not Available [address], [address], 09/02/2023 06:35:03 09/01/19 24 09/01/2023 COMP. METAB OLIC PANEL (14) A/G ratio 2.0 1.2-2. 2 Not Available [address], [address], 09/02/2023 06:35:03 09/01/19 24 09/01/2023 COMP. METAB OLIC PANEL (14) bilirubin, total 0.3 mg/dL 0.0-1. 2 Not Available [address], [address], 09/02/2023 06:35:03 09/01/19 24 09/01/2023 COMP. METAB OLIC PANEL (14) alkaline phosphatase 86 IU/L 44-121 Not Available [address], [address], 09/02/2023 06:35:03 09/01/19 24 09/01/2023 COMP. METAB OLIC PANEL (14) AST (SGOT) 14 IU/L 0-40 Not Available [facility] [address], [address], 09/02/2023 06:35:03 09/01/1909/01/2023 COMP. METAB OLIC PANEL (14) ALT (SGPT) 14 IU/L 0-32 Not Available [address], [address], 09/02/2023 06:35:03 09/01/19 24 09/01/2023 CBC, PLATE LET, NO DIFFE RENTI AL WBC 6.6 x10e3 /uL 3.4-10 .8 Not Available [address], [address], 09/02/2023 06:35:04 09/01/19 24 09/01/2023 CBC, PLATE LET, NO DIFFE RENTI AL RBC 5.03 x10e6 /uL 3.77-5 .28 Not Available [address], [address], 09/02/2023 06:35:04 09/01/1909/01/2023 CBC, PLATE LET, NO DIFFE RENTI AL hemoglobin 14.7 g/dL 11.1-1 5.9 Not Available [address], [address], 09/02/2023 06:35:04 09/01/1909/01/2023 CBC, PLATE LET, NO DIFFE RENTI AL hematocrit 45.7 % 34.0-4 6.6 Not Available [address], [address], 09/02/2023 06:35:04 09/01/1909/01/2023 CBC, PLATE LET, NO DIFFE RENTI AL MCV 91 fL 79-97 Not Available [facility] & [address], [address], 09/02/2023 06:35:04 09/01/19 24 09/01/2023 CBC, PLATE LET, NO DIFFE RENTI AL MCH 29.2 pg 26.6-3 3.0 Not Available [address], [address], 09/02/2023 06:35:04 09/01/19 24 09/01/2023 CBC, PLATE LET, NO DIFFE RENTI AL MCHC 32.2 g/dL 31.5-3 5.7 Not Available [address], [address], 09/02/2023 06:35:04 09/01/19 24 09/01/2023 CBC, PLATE LET, NO DIFFE RENTI AL RDW 12.7 % 11.5-1 4.5 Not Available [address], [address], 09/02/2023 06:35:04 09/01/1909/01/2023 CBC, PLATE LET, NO DIFFE RENTI AL platelets 375 x10e3 /uL 150-45 0 Mean Plate let Volum e 10.7 fL 8.9-1 2.7 N Not Available [address], [address], 09/02/2023 06:35:04 09/01/1909/01/2023 CBC, PLATE LET, NO DIFFE RENTI AL NRBC 0 % 0-0 Not Available [facility] & [address], [address], 09/02/2023 06:35:04 09/01/1909/02/2023 CARDI OVASC ULYASMANI REPOR T interpretati on Note Suppl etienne ferrari is avail able. Not Available [address], [address], 09/02/2023 06:35:04 09/01/19 24 09/02/2023 MARY Alexander pdf . Not Available [address], [address], 09/02/2023 06:35:04 09/01/19 24 09/01/2023 HbA1c (hemo globi n A1c), blood HbA1c 6.0 Not Available In-Office Order Internal Use Only DO Not Attach Compendium DO Not Attach Compendium, Do Not Delete/merge, [id number] 09/01/2023 11:07:02 04/26/2004/27/2024 LIPID PANEL cholesterol, total 358 mg/dL 100-19 9 above high normal Not Available [address], [address], 04/27/2024 10:11:18 04/26/20 24 04/27/2024 LIPID PANEL triglyceride s 137 mg/dL 0-149 Not Available [address], [address], 04/27/2024 10:11:18 04/26/2004/27/2024 LIPID PANEL HDL cholesterol 86 mg/dL >39 Not Available [address], [address], 04/27/2024 10:11:18 04/26/20 24 04/27/2024 LIPID PANEL VLDL cholesterol elton 25 mg/dL 5-40 Not Available [address], [address], 04/27/2024 10:11:18 04/26/20 24 04/27/2024 LIPID PANEL LDL chol calc (rust) 247 mg/dL 0-99 above high normal Not Available [address], [address], 04/27/2024 10:11:18 04/26/20 24 04/27/2024 LIPID PANEL LDL calc comment: COMMEN T Consi kamari evalu ating for Famil ial Hyper elizabeth stero lemia (FH), if clini danyel indic ated. Not Available [address], [address], 04/27/2024 10:11:18 04/26/20 24 04/27/2024 COMP. METAB OLIC PANEL (14) glucose 107 mg/dL 70-99 above high normal Not Available [address], [address], 04/27/2024 10:11:18 04/26/20 24 04/27/2024 COMP. METAB OLIC PANEL (14) BUN 15 mg/dL 8-27 Not Available [address], [address], 04/27/2024 10:11:18 04/26/20 24 04/27/2024 COMP. METAB OLIC PANEL (14) creatinine 0.77 mg/dL 0.57-1 .00 Not Available [address], [address], 04/27/2024 10:11:18 04/26/20 24 04/27/2024 COMP. METAB OLIC PANEL (14) eGFR 82 mL/mi n/1.7 3 >59 Not Available [address], [address], 04/27/2024 10:11:18 04/26/20 24 04/27/2024 COMP. METAB OLIC PANEL (14) BUN/creatini ne ratio 19 12-28 Not Available [address], [address], 04/27/2024 10:11:18 04/26/20 24 04/27/2024 COMP. METAB OLIC PANEL (14) sodium 138 mmol/ L 134-14 4 Not Available [address], [address], 04/27/2024 10:11:18 04/26/20 24 04/27/2024 COMP. METAB OLIC PANEL (14) potassium 4.7 mmol/ L 3.5-5. 2 Not Available [address], [address], 04/27/2024 10:11:18 04/26/20 24 04/27/2024 COMP. METAB OLIC PANEL (14) chloride 97 mmol/ L 96-106 Not Available [address], [address], 04/27/2024 10:11:18 04/26/20 24 04/27/2024 COMP. METAB OLIC PANEL (14) carbon dioxide, total 23 mmol/ L 20-29 Not Available [address], [address], 04/27/2024 10:11:18 04/26/20 24 04/27/2024 COMP. METAB OLIC PANEL (14) calcium 9.7 mg/dL 8.7-10 .3 Not Available [address], [address], 04/27/2024 10:11:18 04/26/20 24 04/27/2024 COMP. METAB OLIC PANEL (14) protein, total 6.6 g/dL 6.0-8. 5 Not Available [address], [address], 04/27/2024 10:11:18 04/26/20 24 04/27/2024 COMP. METAB OLIC PANEL (14) albumin 4.5 g/dL 3.8-4. 8 Not Available [address], [address], 04/27/2024 10:11:18 04/26/20 24 04/27/2024 COMP. METAB OLIC PANEL (14) globulin, total 2.1 g/dL 1.5-4. 5 Not Available [address], [address], 04/27/2024 10:11:18 04/26/20 24 04/27/2024 COMP. METAB OLIC PANEL (14) bilirubin, total 0.3 mg/dL 0.0-1. 2 Not Available [address], [address], 04/27/2024 10:11:18 04/26/20 24 04/27/2024 COMP. METAB OLIC PANEL (14) alkaline phosphatase 90 IU/L 44-121 Not Available [address], [address], 04/27/2024 10:11:18 04/26/20 24 04/27/2024 COMP. METAB OLIC PANEL (14) AST (SGOT) 16 IU/L 0-40 Not Available [address], [address], 04/27/2024 10:11:18 04/26/20 24 04/27/2024 COMP. METAB OLIC PANEL (14) ALT (SGPT) 14 IU/L 0-32 Not Available [address], [address], 04/27/2024 10:11:18 04/26/20 24 04/27/2024 CARDI OVASC CHANEL GARCIAS T interpretati on Note Suppl etienne ferrari is avail able. Not Available [address], [address], 04/27/2024 10:11:19 09/06/04/27/2024 MARY Alexander pdf . Not Available [facility] & [address], [address], 04/27/2024 10:11:19 04/26/2004/27/2024 HEMOG LOBIN A1C hemoglobin A1C 6.2 % 4.8-5. 6 above high normal Predi abete s: 5.7 - 6.4 Diabe ana: >6.4 Glyce eladio contr ol for adult s with diabe ana: <7.0 Not Available [address], [address], 04/27/2024 10:11:20 04/26/2004/27/2024 CBC, PLATE LET, NO DIFFE RENTI AL WBC 5.3 x10e3 /uL 3.4-10 .8 Not Available [address], [address], 04/27/2024 10:11:20 04/26/2004/27/2024 CBC, PLATE LET, NO DIFFE RENTI AL RBC 5.25 x10e6 /uL 3.77-5 .28 Not Available [address], [address], 04/27/2024 10:11:20 04/26/2004/27/2024 CBC, PLATE LET, NO DIFFE RENTI AL hemoglobin 15.7 g/dL 11.1-1 5.9 Not Available [address], [address], 04/27/2024 10:11:20 04/26/2004/27/2024 CBC, PLATE LET, NO DIFFE RENTI AL hematocrit 48.6 % 34.0-4 6.6 above high normal Not Available [address], [address], 04/27/2024 10:11:20 04/26/20 24 04/27/2024 CBC, PLATE LET, NO DIFFE RENTI AL MCV 93 fL 79-97 Not Available [address], [address], 04/27/2024 10:11:20 04/26/20 24 04/27/2024 CBC, PLATE LET, NO DIFFE RENTI AL MCH 29.9 pg 26.6-3 3.0 Not Available [address], [address], 04/27/2024 10:11:20 04/26/2004/27/2024 CBC, PLATE LET, NO DIFFE RENTI AL MCHC 32.3 g/dL 31.5-3 5.7 Not Available [address], [address], 04/27/2024 10:11:20 04/26/20 24 04/27/2024 CBC, PLATE LET, NO DIFFE RENTI AL RDW 12.3 % 11.7-1 5.4 Not Available [address], [address], 04/27/2024 10:11:20 04/26/20 24 04/27/2024 CBC, PLATE LET, NO DIFFE RENTI AL platelets 334 x10e3 /uL 150-45 0 Not Available [address], [address], 04/27/2024 10:11:20 10/26/19 25 10/26/2024 LIPID PANEL cholesterol, total 311 mg/dL 100-19 9 above high normal Not Available [address], [address], 10/26/2024 09:15:43 10/26/19 25 10/26/2024 LIPID PANEL triglyceride s 118 mg/dL 0-149 Not Available [address], [address], 10/26/2024 09:15:43 10/26/19 25 10/26/2024 LIPID PANEL HDL cholesterol 77 mg/dL >39 Not Available [facility] & [address], [address], 10/26/2024 09:15:43 10/26/19 25 10/26/2024 LIPID PANEL VLDL cholesterol elton 21 mg/dL 5-40 Not Available [address], [address], 10/26/2024 09:15:43 10/26/19 25 10/26/2024 LIPID PANEL LDL chol calc (rust) 213 mg/dL 0-99 above high normal Not Available [address], [address], 10/26/2024 09:15:43 10/26/19 25 10/26/2024 LIPID PANEL LDL calc comment: COMMEN T Consi kamari evalu ating for Famil ial Hyper elizabeth stero lemia (FH), if clini danyel indic ated. Not Available [address], [address], 10/26/2024 09:15:43 10/26/19 25 10/26/2024 COMP. METAB OLIC PANEL (14) glucose - mg/dL Test not perfo rmed. Serum was in conta ct with cells when recei gudelia which will make the resul t inacc urate . Not Available [address], [address], 10/26/2024 09:15:44 10/26/19 25 10/26/2024 COMP. METAB OLIC PANEL (14) BUN 14 mg/dL 8-27 Not Available [facility] & [address], [address], 10/26/2024 09:15:44 10/26/19 25 10/26/2024 COMP. METAB OLIC PANEL (14) creatinine 0.61 mg/dL 0.57-1 .00 Not Available [address], [address], 10/26/2024 09:15:44 10/26/19 25 10/26/2024 COMP. METAB OLIC PANEL (14) eGFR 95 mL/mi n/1.7 3 >59 Not Available [address], [address], 10/26/2024 09:15:44 10/26/19 25 10/26/2024 COMP. METAB OLIC PANEL (14) BUN/creatini ne ratio 23 12-28 Not Available [address], [address], 10/26/2024 09:15:44 10/26/19 25 10/26/2024 COMP. METAB OLIC PANEL (14) sodium 136 mmol/ L 134-14 4 Not Available [address], [address], 10/26/2024 09:15:44 10/26/19 25 10/26/2024 COMP. METAB OLIC PANEL (14) potassium - mmol/ L Test not perfo rmed. Serum was in conta ct with cells when recei gudelia which will make the resul t inacc urate . Not Available [address], [address], 10/26/2024 09:15:44 10/26/19 25 10/26/2024 COMP. METAB OLIC PANEL (14) chloride 97 mmol/ L 96-106 Not Available [address], [address], 10/26/2024 09:15:44 10/26/19 25 10/26/2024 COMP. METAB OLIC PANEL (14) carbon dioxide, total 22 mmol/ L 20-29 Not Available [address], [address], 10/26/2024 09:15:44 10/26/19 25 10/26/2024 COMP. METAB OLIC PANEL (14) calcium 9.6 mg/dL 8.7-10 .3 Not Available [address], [address], 10/26/2024 09:15:44 10/26/19 25 10/26/2024 COMP. METAB OLIC PANEL (14) protein, total 6.8 g/dL 6.0-8. 5 Not Available [address], [address], 10/26/2024 09:15:44 10/26/19 25 10/26/2024 COMP. METAB OLIC PANEL (14) albumin 4.4 g/dL 3.8-4. 8 Not Available [address], [address], 10/26/2024 09:15:44 10/26/19 25 10/26/2024 COMP. METAB OLIC PANEL (14) globulin, total 2.4 g/dL 1.5-4. 5 Not Available [address], [address], 10/26/2024 09:15:44 10/26/19 25 10/26/2024 COMP. METAB OLIC PANEL (14) bilirubin, total 0.4 mg/dL 0.0-1. 2 Not Available [address], [address], 10/26/2024 09:15:44 10/26/19 25 10/26/2024 COMP. METAB OLIC PANEL (14) alkaline phosphatase 96 IU/L 44-121 Not Available [facility] & [address], [address], 10/26/2024 09:15:44 10/26/19 25 10/26/2024 COMP. METAB OLIC PANEL (14) AST (SGOT) 15 IU/L 0-40 Not Available [address], [address], 10/26/2024 09:15:44 10/26/19 25 10/26/2024 COMP. METAB OLIC PANEL (14) ALT (SGPT) 15 IU/L 0-32 Not Available [address], [address], 10/26/2024 09:15:44 10/26/19 25 10/26/2024 CARDI OVASC ULAR REPOR T interpretati on Note Suppl ement al repor t is avail able. Not Available [address], [address], 10/26/2024 09:15:45 10/26/1910/26/2024 CARDI OVASC ULAR REPOR T pdf . Not Available [address], [address], 10/26/2024 09:15:45 10/26/1910/26/2024 HEMOG LOBIN A1C hemoglobin A1C 6.3 % 4.8-5. 6 above high normal Predi abete s: 5.7 - 6.4 Diabe ana: >6.4 Glyce eladio contr ol for adult s with diabe ana: <7.0 Not Available [address], [address], 10/26/2024 09:15:46 10/26/19 25 10/26/2024 CBC, PLATE LET, NO DIFFE RENTI AL WBC 6.7 x10e3 /uL 3.4-10 .8 Not Available [address], [address], 10/26/2024 09:15:47 10/26/1910/26/2024 CBC, PLATE LET, NO DIFFE RENTI AL RBC 5.04 x10e6 /uL 3.77-5 .28 Not Available [address], [address], 10/26/2024 09:15:47 10/26/1910/26/2024 CBC, PLATE LET, NO DIFFE RENTI AL hemoglobin 14.8 g/dL 11.1-1 5.9 Not Available [address], [address], 10/26/2024 09:15:47 10/26/1910/26/2024 CBC, PLATE LET, NO DIFFE RENTI AL hematocrit 44.9 % 34.0-4 6.6 Not Available [address], [address], 10/26/2024 09:15:47 10/26/1910/26/2024 CBC, PLATE LET, NO DIFFE RENTI AL MCV 89 fL 79-97 Not Available [address], [address], 10/26/2024 09:15:47 10/26/1910/26/2024 CBC, PLATE LET, NO DIFFE RENTI AL MCH 29.4 pg 26.6-3 3.0 Not Available [address], [address], 10/26/2024 09:15:47 10/26/19 25 10/26/2024 CBC, PLATE LET, NO DIFFE RENTI AL MCHC 33.0 g/dL 31.5-3 5.7 Not Available [address], [place], [address], 10/26/2024 09:15:47 10/26/1910/26/2024 CBC, PLATE LET, NO DIFFE RENTI AL RDW 12.6 % 11.7-1 5.4 Not Available [address], [address], 10/26/2024 09:15:47 10/26/19 25 10/26/2024 CBC, PLATE LET, NO DIFFE RENTI AL platelets 397 x10e3 /uL 150-45 0 Not Available [address], [address], 10/26/2024 09:15:47 01/19/20 23 01/13/2023 XR, knee No observ ation record ed. [address], [address], 01/18/2023 17:33:00 01/12/20 24 01/12/2024 XR, knee No observ ation record ed. [address], [address], 01/12/2024 11:19:55 04/16/20 25 04/16/2025 elect romyo gram + nerve condu ction study No observ ation record ed. [facility] (Outpatient Registration) [address] [place], [address], 04/17/2025 14:16:46 04/17/20 25 04/16/2025 elect romyo gram + nerve condu ction study No observ ation record ed. [facility] [address] [place], [address], 04/17/2025 14:16:47 04/23/20 25 04/16/2025 elect romyo gram + nerve condu ction study No observ ation record ed. [facility] (Outpatient Registration) [address] [facility], [place], [address], 04/24/2025 09:07:53 06/02/20 25 06/02/2025 XR, hand No observ ation record ed. [facility] [address], [place], [address], 06/02/2025 15:59:12 Result Notes None recorded. Problems Name Problem SNOMED Code Status Onset Date Resolution Date Notes Provider Name and Address Organization Details Recorded Time Knee pain Active LORRAINE [place], [place] - [facility] 1 11:05:59 Acute lymphadenitis 76622048 Active L[place]INE [place], [place] [facility] 11:05:59 Upper respiratory infection 88206335 Active L[place], [place] [facility] 1 11:05:59 Arthritis 2160842 Active Ingrid Yang [place], [place] [facility] 1 11:05:59 Hyperlipidemia 76043883 Active 2011 Ingrid Yang [place], [place] [facility] 1 11:05:59 Tobacco user 119869118 Active 2011 Ingrid Yang [place], [place] [facility] 1 11:05:59 Hypertensive disorder 38384117 Active 2011 LORRAINE [place], [place] - [facility] 1 11:05:59 Problem Notes None recorded. Procedures Surgical History Date Name Laterality Status Provider Name and Address Organization Details Recorded Time 01/20/20 21 Date of Last Mammogram completed LORRAINE Medina - [facility] 08/25/2021 10:12:06 Appendectomy completed LORRAINE Villar [facility] 01/28/2015 10:29:23 Hernia Repair completed LORRAINE Villar SI[facility] 01/28/2015 10:29:23 Hysterectomy completed LORRAINE Villar 01/28/2015 10:29:23 Knee Surgery completed LORRAINE Villar 01/28/2015 10:29:23 Tonsillectomy completed Caridad Malik [place] - [facility] 01/28/2015 10:29:23 Imaging Results None recorded. Procedure Notes None recorded. Medical Equipment None Reported. Allergies No known drug allergies Medications Name Sig Start Date Stop Date Status Note LastModified by Organization Details LastModified Time verapamil ER (SR) 120 mg tablet,exte nded release Take 1 tablet by mouth once daily 05/04 completed Not Available Not Available Not Available celecoxib 200 mg capsule TAKE 1 CAPSULE BY MOUTH EVERY DAY 10/25 completed Not Available Not Available Not Available amoxicillin 500 mg capsule TK FOUR CS PO 1 HOUR B DAPP 03/24 completed Not Available Not Available Not Available Augmentin 875 mg-125 mg tablet Take 1 tablet every 12 hours by oral route for 10 days. 2014 active Not Available Not Available Not Avai lable bupropion HCl SR 150 mg tablet,12 hr sustained-r elease TAKE 1 TABLET BY MOUTH TWICE DAILY 09/01 completed Not Available Not Available Not Available atorvastati n 20 mg tablet Take 1 tablet every day by oral route for 90 days. 05/04 completed Not Available Not Available Not Available tretinoin 0.025 % topical cream APPLY A PEA SIZED AMOUNT TO FACE NIGHTLY 05/04 completed Not Available Not Available Not Available meloxicam 15 mg tablet TAKE 1/2 TABLET BY MOUTH TWICE DAILY 04/29 completed Not Available Not Available Not Available verapamil ER (SR) 180 mg tablet,exte nded release take 1 tablet daily 04/16 completed Not Available Not Available Not Available amlodipine 5 mg tablet TAKE 1 TABLET BY MOUTH DAILY active Not Available Not Available No t Available lovastatin 10 mg tablet Take 1 tablet every day by oral route for 90 days. 11/30 completed Not Available Not Available Not Available amoxicillin 500 mg tablet TAKE FOUR TS PO 1 HOUR B DAPP 10/25 completed Not Available Not Available Not Available simvastatin 40 mg tablet Take 1 tablet every day by oral route for 90 days. 09/01 completed Not Available Not Available Not Available verapamil 120 mg tablet TAKE 1 TABLET BY MOUTH ONCE DAILY 08/12 completed Not Available Not Available Not Available oxycodone-a cetaminophe n 5 mg-325 mg tablet 08/25 completed Not Available Not Available Not Available amoxicillin 875 mg tablet TAKE 1 TABLET BY MOUTH EVERY 12 HOURS FOR 10 DAYS 03/26 completed Not Available Not Available Not Available magnesium gluconate 30 mg (550 mg) tablet Take 30 mg by oral route. 08/25 completed Not Available Not Available Not Available pravastatin 10 mg tablet TAKE 1 TABLET BY MOUTH DAILY 2014 active Not Available Not Available Not Avai lable cephalexin 500 mg capsule TAKE 4 CAPSULES BY MOUTH 1 HOUR BEFORE SURGERY ON JANUARY 0509/01 completed Not Available Not Available Not Available ascorbate calcium (vitamin C) 500 mg tablet Take 500 mg by oral route. 08/25 completed Not Available Not Available Not Available gabapentin 300 mg capsule Take 1 capsule 3 times a day by oral route for 30 days. 04/04 completed Not Available Not Available Not Available diclofenac sodium 75 mg tablet,moshe yed release TAKE ONE TABLET BY MOUTH TWICE DAILY 04/04 completed Not Available Not Available Not Available aspirin 81 mg tablet Take 81 mg by oral route. 12/08 completed Not Available Not Available Not Available pravastatin 20 mg tablet 1 daily 2014 active Not Available Not Available Not Avai lable gabapentin 100 mg capsule Take 1 capsule 3 times a day by oral route as needed for 30 days. 01/28 completed Not Available Not Available Not Available lovastatin 20 mg tablet Take 1 tablet every day by oral route for 90 days. 11/30 completed Not Available Not Available Not Available methylpredn isolone 4 mg tablets in a dose pack Take 1 dose pk by oral route. 12/02 completed Not Available Not Available Not Available cholecalcif jose (vitamin D3) 10 mcg (400 unit) capsule 2014 active Not Available Not Available Not Avai lable Paxlovid 300 mg (150 mg x 2)-100 mg tablets in a dose pack Take 1 dose pk by oral route as directed. 12/02 completed Not Available Not Available Not Available Vitals Date Recorded Body height Body mass index (BMI) Body weight Heart rate Oxygen saturation Oxygen saturation in Arterial blood by Pulse oximetry Systolic And Diastolic Provider Name and Address Organization Details Last Updated DateTime 4 157.48 cm 30.1 kg/m2 86444.2 5 g 82 /min 98 % 98 % 144/85 mm[Hg] Aniyah Jaramillo MA [facility] 4 10:41:05 Date Recorded Body height Body mass index (BMI) Body weight Oxygen saturation Oxygen saturation in Arterial blood by Pulse oximetry Heart rate Respiratory rate Systolic And Diastolic Provider Name and Address Organization Details Last Updated DateTime 5 157.48 cm 29.7 kg/m2 86133.1 2 g 96 % 96 % 80 /min 16 /min 129/81 mm[Hg] Khushbu Mcmahon MA [facility] 5 09:56:16 Date Recorded Body height Body mass index (BMI) Body weight Body temperature Oxygen saturation Oxygen saturation in Arterial blood by Pulse oximetry Heart rate Systolic And Diastolic Provider Name and Address Organization Details Last Updated DateTime 3 157.48 cm 29.4 kg/m2 85438.3 7 g 98.2 [degF] 98 % 98 % 89 /min 114/74 mm[Hg] Caridad starkey MA [facility] 3 11:43:00 Date Recorded Body height Body mass index (BMI) Body weight Oxygen saturation Oxygen saturation in Arterial blood by Pulse oximetry Heart rate Systolic And Diastolic Provider Name and Address Organization Details Last Updated DateTime 5 157.48 cm 29.4 kg/m2 84541.3 7 g 98 % 98 % 84 /min 130/88 mm[Hg] Ingrid Yang MA [facility] 5 15:03:43 Date Recorded Body height Body mass index (BMI) Body weight Oxygen saturation Oxygen saturation in Arterial blood by Pulse oximetry Heart rate Systolic And Diastolic Provider Name and Address Organization Details Last Updated DateTime 4 157.48 cm 29.7 kg/m2 30347.3 6 g 96 % 96 % 79 /min 126/82 mm[Hg] Aniyah Jaramillo MA [facility] 4 11:17:54 Social History Question Answer Notes LastModified by Organizat ion Details LastModified Time Tobacco Smoking Status Former Smoker Quit 1 year ago Francy Cheli, MA [facility], [place] - [facility] 08/12/2020 16:20:50 Are You Blind Or Do You Have Difficulty Seeing? No Information not available 05/04/2022 What Is Your Level Of Caffeine Consumption? Moderate Information not available 08/12/2020 In The 14 Days Before Symptom Onset, Have You Had Close Contact With A Laboratory-confir med COVID-19 While That Case Was Ill? No Information not available 08/25/2021 In The 14 Days Before Symptom Onset, Have You Had Close Contact With A Person Who Is Under Investigation For COVID-19 While That Person Was Ill? No Information not available 08/25/2021 Have You Been To An Area Known To Be High Risk For COVID-19? No Information not available 08/25/2021 Are You Deaf Or Do You Have Serious Difficulty Hearing? No Information not available 05/04/2022 What Type Of Diet Are You Following? REGULAR Information not available 08/12/2020 Marital Status Informati on not available 08/12/2020 What Was The Date Of Your Most Recent Tobacco Screening? 03/26/2025 Information not available 03/26/2025 What Is Your Relationship Status? Information not available 08/25/2021 Do You Use Your Seat Belt Or Car Seat Routinely? Yes Information not available 05/04/2022 Do You Have Smoke And Carbon Monoxide Detectors In Your Home? Yes Information not available 08/25/2021 Are You Passively Exposed To Smoke? No Information no t available 08/25/2021 General Stress Level Medium Information not available 08/12/2020 Do You Use Sunscreen Routinely? Yes Information not available 05/04/2022 Has Tobacco Cessation Counseling Been Provided? No Information not available 08/25/2021 On What Date Was Tobacco Cessation Counseling Provided? 03/26/2025 Information not available 03/26/2025 How Many Years Have You Smoked Tobacco? 17 [email or web address] Information not available 01/28/2015 Sex: Female Functional Status Question Answer Note LastModified by Organizat ion Details LastModified Time Do you use any illicit or recreational drugs? No Information not available 08/25/2021 Do you or have you ever used any other forms of tobacco or nicotine? No Information not available 08/25/2021 What is your level of alcohol consumption? None Information not available 08/12/2020 Do you or have you ever used smokeless tobacco? Never used smokeless tobacco Information not available 08/12/2020 Are you currently employed? No Information not available 08/25/2021 Are you able to care for yourself independently? Yes Information not available 08/25/2021 What is your occupation? Retired Information not available 08/12/2020 Do you or have you ever used e-cigarettes or vape? Never used electronic cigarettes Information not available 08/12/2020 What is your exercise level? Occasional [email or web address] Information not available 12/02/2022 Mental Status Question Answer Note LastModified by Organization D etails LastModified Time Do you feel stressed (tense, restless, nervous, or anxious, or unable to sleep at night)? [id number] Information not available 08/25/2021 Family History Relationship Description Onset Age of this Age Resolved Age Notes LastModified by Organization Details LastModified Time Mother Malignant neoplasm of breast [email or web address] Not available 2014 10:25:41 Mother Dementia [email or web address] Not availabl e 02/27/2015 10:25:41 Mother Diabetes mellitus [email or web address] Not available 2014 10:25:41 Mother Hypertensive disorder [email or web address] Not available 2014 10:25:41 Mother Hyperlipidem ia [email or web address] Not available 2014 10:25:41 Father Cerebrovascu lar accident [email or web address] Not available 05/2015 10:25:41 Father Dementia [email or web address] Not availabl e 02/27/2015 10:25:41 Father Hypertensive disorder [email or web address] Not available 2014 10:25:41 Father Hyperlipidem ia jweichert Not available 2014 10:25:41 Sister Diabetes mellitus [email or web address] Not available 2014 10:25:41 Medical History Condition Response Coronary Artery Disease N Other N Atrial Fibrillation N High Blood Pressure Y Thyroid Problems N Kidney or Bladder Problems N Depression N COPD N Blood Clots N GI Problems N Skin Problems N Eating Disorder N Anemia N Heart Attack (PA) N Diabetes N Anxiety Disorder N Muscle, Joint, or Bone Problems N Seizures/Epilepsy N Acid Reflux (GERD) N Cancer N Stroke N Allergies N Asthma N ADHD N Substance Abuse N High Cholesterol Y Hepatitis N Liver Disease N Schizophrenia N Headaches N Osteoporosis N Heart Failure N Gynecological History Statement/Question Response Date of Last Pap Smear Date of Last Mammogram 01/19/2021 Obstetrics History GPAL:G 0 P 0 0 0 0 Immunizations Vaccine Type Date Status Note Provider Nam e and Address Organization Details Recorded Time COVID-19, mRNA, LNP-S, PF, 30 mcg/0.3 mL dose 1 completed Not Available [facility] 04/07/2023 15:25:25 COVID-19, mRNA, LNP-S, PF, 30 mcg/0.3 mL dose 1 completed Not Available [facility] 04/07/2023 15:25:25 COVID-19, mRNA, LNP-S, PF, 30 mcg/0.3 mL dose 1 completed Not Available [facility] 04/07/2023 15:25:25 zoster recombinant 4 completed Not Available [facility] 03/26/2025 14:49:33 zoster recombinant 4 completed Not Available [facility] 03/26/2025 14:49:33 Influenza, split virus, quadrivalent, preservative 7 completed Not Available [facility] 09/07/2019 02:39:47 Pneumococcal conjugate PCV20, polysaccharide [id number] conjugate, adjuvant, PF 4 completed LORRAINE [place], [place] - [facility] 09/01/2023 11:41:05 Past Encounters Encounter ID Performer Location Encounter Start Date Encounter Closed Date Diagnosis/Indication Diagnosis SNOMED-CT Code Diagnosis ICD10 Code Diagnosis IMO Codes Diagnosis Note [id number] Hugh Koch MD [facility] [address] [place] [address] 01/28/2015 10:18:23 01/28/2015 11:17:26 Knee pain 74472059 Hypertensive disorder 02801216 [id number] Hugh Koch MD [facility] [address] [place] [address] 02/23/2015 10:29:51 02/23/2015 11:18:12 Acute lymphadenitis 64540555 [id number] Hugh Koch MD [facility] [address] [place] [address] 02/27/2015 10:24:06 02/27/2015 11:07:45 Upper respiratory infection 61166619 [id number] Harvey Pang PA-C [facility] [address] [place] [address] 12/18/2015 10:34:43 12/18/2015 12:21:10 Hypertensive disorder 57323355 I10 Upper resp iratory infection 66338933 J06.9 Arthritis 3869359 M19.90 [id number] Harvey Pang PA-C [facility] [address] [place] [address] 11/30/2016 09:49:48 11/30/2016 13:58:07 Essential hypertension 15475022 I10 Hyperlipidemia 45695702 E78.5 Chronic arthritis 510180 07 M15.0 Acute sciatica 967358789 M54.32 [id number] Harvey Pang PA-C [facility] [address] [place] [address] 07/03/2017 10:44:35 07/03/2017 15:04:08 Mixed hyperlipidemia 737777517 E78.2 Administra tion of influenza vaccine 17649117 Z23 [id number] Hugh Koch MD [facility] [address] [place] [address] 04/04/2018 10:16:32 04/04/2018 11:11:21 Arthritis 7898494 M19.90 Hypertensive disorder 38 084065 I10 Knee pain 98422264 M25.5 61 Essential hypertension 57655661 I10 [id number] Harvey Pang PA-C [facility] [address] [place] [address] 11/14/2018 11:34:02 11/14/2018 12:38:52 Hypertensive disorder 41638025 I10 Essential hypertension 84213601 I10 Prediabetes 455369342 R7 3.03 [id number] Harvey Pang PA-C [facility] [address] [place] [address] 04/15/2019 10:24:42 04/16/2019 14:47:00 Essential hypertension 38964452 I10 Lumbar radiculopathy 128 494190 M54.16 [id number] Harvey Pang PA-C [facility] [address] [place] [address] 05/20/2019 10:39:15 05/20/2019 12:56:27 Hypertensive disorder 52015600 I10 [id number] Harvey Pang PA-C [facility] [address] [place] [address] 01/29/2020 14:04:45 01/30/2020 09:14:08 Essential hypertension 65821024 I10 Chronic depression 23804 0009 F34.1 reactionar y [id number] Hugh Koch MD [facility] [address] [place] [address] 08/12/2020 12:45:06 08/12/2020 16:53:00 Knee pain 96181389 M25.561 Arthritis 0617845 M15.0 Essential hypertension 93641941 I10 [id number] Hugh Koch MD [facility] [address] [place] [address] 12/08/2020 10:57:25 12/15/2020 08:57:22 New daily persistent headache 6492444567 72553 G44.52 Arthritis 3284141 M15.0 Hypertensive disorder 38 409201 I10 Hyperlipidemia 72155954 E78.5 Arthritis of hand 862977 005 M13.841 Fatigue 66166972 R53.83 [id number] Harvey Pang PA-C [facility] [address] [place] [address] 08/25/2021 09:52:42 08/27/2021 08:23:33 Arthritis 8291136 M15.0 Hyperlipidemia 11349780 E78.2 Hypertensive disorder 38 331679 I10 [id number] ABDULAZIZ Chauhan [facility] [address] [place] [address] 05/04/2022 10:16:26 05/04/2022 11:20:51 Adult health examination 794103438 Z00.00 Obesity 983995106 E66.9 Essential hypertension 69338942 I10 [id number] Harvey Pang PA-C [facility] [address] [place] [address] 06/01/2022 09:48:40 06/01/2022 10:51:54 Suspected COVID-19 906768549 Z20.500 [id number] Harvey Pang PA-C [facility] [address] [place] [address] 12/02/2022 10:18:42 12/05/2022 10:29:03 Fatigue 84200042 R53.83 Essential hypertension 95122767 I10 Mixed anxi ety and depressive disorder 131122102 F41.8 Overweight 033237354 E66 .3 [id number] Harvey Pang PA-C [facility] [address] [place] [address] 12/15/2022 11:34:55 12/19/2022 09:19:32 Mixed anxiety and depressive disorder 148917461 F41.8 [id number] Harvey Pang PA-C [facility] [address] [place] [address] 09/01/2023 10:34:22 09/05/2023 13:00:35 Acute maxillary sinusitis 38357681 J01.01 Osteoarthritis 887851487 M15.0 Overweight 197375495 E66 .3 Essential hypertension 98267655 I10 Administra tion of pneumococcal vaccine 17050620 Z23 [id number] Harvey Pang PA-C [facility] [address] [place] [address] 04/26/2024 10:57:50 04/30/2024 13:37:20 Adult health examination 013719089 Z00.00 Health Risk Assessment collected and reviewed Essential hypertension 72376226 I10 Osteoarthr itis of multiple joints 180864424 M15.0 Overweight 048514336 E66 .[id number] [facility] [address] [place] [address] 10/25/2024 09:45:19 10/29/2024 15:30:27 Recurrent acute maxillary sinusitis 3818786733 8583713 J01.01 Spasm of m uscle of lower back 9922237643 3355792 M62.830 Overweight 776854580 E66 .3 Mixed hyperlipidemia 267 940157 E78.2 Essential hypertension 68152223 I10 [id number] Hugh Koch MD [facility] [address] [place] [address] 03/26/2025 14:48:09 03/27/2025 12:21:30 Arthritis 6598052 M15.0 Carpal david andrew syndrome of right wrist 1003185315 66518 G56.01 664249 Overweight in adulthood with body mass index of 25 or more but less than 30 108535044 E66.3 Z68.29 0068972755 Health Concerns Section Related Observation LastModified by Organization Detai ls LastModified Time None Recorded Concern Status LastModified by Organization Details LastModified Time None Recorded Advance Directives Directive None Recorded Payers Insurance Date Sequence Insurance Name Policy Number Policy Casanova Covered Member ID Casanova Member ID Guarantor Name 03/26/2025 1 [facility] [employer] [facility] Rosalva Sharif [id number] Rosalva Sharif 03/26/2025 2 [employer] [facility] Rosalva Sharif [id number] Rosalva Sharif 03/26/2025 2 [employer] - PLAN J (MEDICARE SUPPLEMENT) Rosalva Sharif [id number] Rosalva Sharif 03/26/2025 2 AETNA - PRIME (MEDICARE REPLACEMENT/AD VANTAGE - HMO) Rosalva Sharif [id number] Rosalva Sharif 03/26/2025 1 [place] [id number] Rsoalva Sharif [id number] Rosalva Sharif 03/26/2025 2 [employer] BENEFITS - FILI PUBLIC LIFE - MULTIPLAN (INDEMNITY) Rosalva Sharif [id number] Rosalva Sharif 03/26/2025 1 [facility] (PPO) [id number] Rosalva Sharif [id number] Rosalva Sharif 03/26/2025 1 [facility] [place] - [employer] - LOCAL FUND 36 (PPO) [id number] Rosalva Sharif [id number] Rosalva Sharif 03/26/2025 1 [place] Rosalva Sharif [id number] Rosalva Sharif 03/26/2025 2 AETNA Rosalva Sharif [id number] Rosalva Sharif 03/26/2025 [place]ARE [place] - [facility] Rosalva Sharif [id number] Rosalva Sharif 03/26/2025 2 [employer]ET[employer] LIFE INSURANCE [employer] (MEDICARE SUPPLEMENT) Rosalva Sharif [id number] Rosalva Sharif 08/23/2017 2 UNSPECIFIED REMIT PAYOR Rosalva Sharif Notes Date Note Type Note Provider Name and Address Organization Details Recorded Time 12/15/2022 text/html ROS as noted in the HPI antidepressant... doesnt like the dry mouth and constipation...ma y not need a pill.... Harvey Pang PA-C Attn: [address] [place], [address], [facility] 12/15/2022 12:09:16 09/01/2023 text/html ROS as noted in the HPI has a sinus infection for a week...also arthritis is not being adequetly controlled by meloxicam...wants pneumonia shot Harvey Pang PA-C Attn: [address] [place], [address], [place] [facility] 09/01/2023 11:18:15 04/26/2024 text/html MAW 2Reported by PatientROS as noted in the HPI discuss meloxicam...maura rned about ulcer... Harvey Pang PA-C Attn: [address] [place], [address], [facility] 04/26/2024 11:53:14 10/25/2024 text/html ROS as noted in the HPI has been sick since ..sinus symptoms general flu like symptoms..cough Harvey Pang PA-C Attn: [address] [place], [address], [facility] 10/25/2024 10:24:55 03/26/2025 text/html ROS as noted in the HPI rt hand trouble gripping with rt hand...feels like carpal..fingers are twisting Harvey Pang PA-C Attn: [address] [place], [address], [facility] 03/26/2025 15:25:16 OBGyn Episode No OBEpisode recorded.
--- OUTSIDE RECORDS SUMMARY | 2025-07-01 01:04 | XMS_ITS | Encounter Summary ---
Author Organization [facility] Address [address] [place] [address] Care Team Providers Care Meter Reading Clerk Name Role Phone Unavailable Primary Care Provider Unavailabl e Encounter Details Date Type Department Care Team (Late st Contact Info) Description 09/21/[address] [facility] DermPath Lab [address] [place] [id number] Ramon Bell Jr., MD [address] [place] [address] Social History Tobacco Use Types Packs/Day Years Used Date Smoking Tobacco: Never Assessed Comments Unknown Sex and Gender Information Value Date Recorded Sex Assigned at Not on file Legal Sex Female 9:56 AM CDT Gender Identity Not on file Sexual Orientation Not on file documented as of this encounter Plan of Treatment Not on file documented as of this encounter Procedures Procedure Name Priority Date/Time Associated Diagnosis Comments DERMATOPATHOLOGY Routine 09/18/2020 12:0 0 AM INDUSTRIAL RENDERER documented in this encounter Results * DERMATOPATHOLOGY (09/18/2020 12:00 AM INDUSTRIAL RENDERER) Case Report Dermatopathology Report Case: [id number] Authorizing Provider: Ramon Bell Jr., MD Collected: 09/18/2020 12:00 AM Ordering Location: [facility] DermPath Lab Received: 09/21/2020 01:24 PM Pathologist: Wendy Austin MD Specimen: Skin, left rib cage 12:16 PM INDUSTRIAL RENDERER DERMATOPATHOLOGY LABORATORY Final Diagnosis Specimen A. SKIN, left rib cage: SEBORRHEIC KERATOSIS, IRRITATED AND INFLAMED (L82.0) 12:16 PM INDUSTRIAL RENDERER DERMATOPATHOLOGY LABORATORY at 1215 INDUSTRIAL RENDERER Clinical History Inflamed seborrheic keratosis. . 12:16 PM INDUSTRIAL RENDERER DERMATOPATHOLOGY LABORATORY Gross Description Specimen A: Received is one formalin filled container labeled with the patient's name and designated left rib cage. The specimen consists of a shave biopsy measuring [id number]. Jar 0. 12:16 PM [facility] DERMATOPATHOLOGY LABORATORY Microscopic Description Specimen A. SKIN, left rib cage: Sections show acanthosis, papillomatosis, hyperkeratosis, and squamous eddies. There is a lymphohistiocytic infiltrate within the papillary dermis. 12:16 PM [facility] DERMATOPATHOLOGY LABORATORY Disclaimer An external and internal positive and negative controls are appropriate for the histochemical, immunohistochemical and immunofluorescence stain(s) in this case (if any), except where stated explicitly. The performance characteristics of the stain(s) cited in this report were developed and its performance characteristic determined by the Dermatopathology Laboratory at [facility], directed by Dr. Boby Austin. These tests need not be, and therefore are not, approved by the [place] Food and Drug Administration. The tests are used for clinical purposes. Billing Codes Specimen Charges Stain Charges 23200 1 12:16 PM INDUSTRIAL RENDERER DERMATOPATHOLOGY LABORATORY Embedded Images 12:16 PM [facility] DERMATOPATHOLOGY LABORATORY Pathology/Cytolog y TISSUE SPECIMEN FROM SKIN / Unknown 09/18/2020 09/21/2020 1:24 PM INDUSTRIAL RENDERER Ramon Bell Jr., MD LAB - PATHOLOGY/CYTOLOG Y ORDERABLES Final Result DERMATOPATHOLOGY LABORATORY [facility] - Department of Dermatology [address], [address] [phone] documented in this encounter Visit Diagnoses Not on filedocumented in this encounter
--- OUTSIDE RECORDS SUMMARY | 2025-07-01 01:04 | XMS_ITS | Clinical Summary ---
Author Organization [facility] Address [address] [place] [address] Care Team Providers Care Cable Splicer Assistant Name Role Phone Unavailable Primary Care Provider Unavailabl e Source Comments [facility],non-owned Affiliates and Associated Physician Practices is amultiple site organization consisting of ambulatory clinics and hospital sitesin [place], [place], [place] and [place]. This disclosure is being madepursuant to the Care Everywhere program and may not contain all information available regarding this patient. Last updated 18.[facility] [place] Social History Tobacco Use Types Packs/Day Years Used Date Smoking Tobacco: Never Assessed Comments Unknown Sex and Gender Information Value Date Recorded Sex Assigned at Not on file Legal Sex Female 9:56 AM CDT Gender Identity Not on file Sexual Orientation Not on file Plan of Treatment Health Maintenance Due Date Last Done Comments BONE DENSITY TESTING 1950 COLOGUARD (AGES 45-75) - COL ON CA SCREENING 1950 COLON MONITORING 1950 COLONOSCOPY - COLON CA SCREENING 1950 CT COLONOGRAPHY - COLON CA SCREENING 1950 Colorectal Cancer Screening 1950 FIT - COLON CA SCREENING 1950 FLEX SIG - COLON CA SCREENING 1950 LIPID TESTING 1950 MAMMOGRAM 1950 HEPATITIS C SCREENING 11/21/1969 DTAP/TDAP/TD VACCINES (1 - Tdap) 11/25/1970 PNEUMOCOCCAL VACCINE 50+ (1 of 1 - PCV) 11/25/2001 ZOSTER VACCINE (1 of 2) 11/25/2001 DEPRESSION SCREENING 08/21/2024 COVID-19 VACCINE ( - 2023-2 5 season) 2025 INFLUENZA VACCINE (#1) 2025 Respiratory Syncytial Virus (RSV) Vaccine Pt: or over 60 yrs (1 - 1-dose 75+ series) 11/25/2026 HEPATITIS B VACCINE Aged Out No longe r eligible based on patient's age to complete this topic HIB VACCINE Aged Out No longer eligi ble based on patient's age to complete this topic HPV VACCINE Aged Out No longer eligi ble based on patient's age to complete this topic MENINGOCOCCAL (Group B) VACC INE SHARED DECISION-MAKING Aged Out No longer eligibl e based on patient's age to complete this topic MENINGOCOCCAL GROUPS A/C/Y/W VACCINE Aged Out No longer eligible b ased on patient's age to complete this topic Insurance MEDICARE AETNA [place]
--- OUTSIDE RECORDS SUMMARY | 2025-07-01 01:04 | XMS_ITS | Clinical Summary ---
Author Organization [facility] Address [address] [place] [address] Phone Care Team Providers Care Comic Book Designer Name Role Phone Timmy Pang Primary Care Provider [phone] Allergies No known active allergies Medications verapamil (CALAN,ISOPTIN) 120 MG Tablet Take 120 mg by mouth daily. Active Cyanocobalamin (VITAMIN B-12 CR) 1000 MCG Tablet Controlled Release Take 1,000 mcg by mouth daily. Active Cholecalciferol (VITAMIN D3) 1000 UNIT Tablet Take 1,000 Units by mouth daily. Active vitamin E (TOCOPHEROL) 400 UNIT Capsule Take 400 Units by mouth daily. Active Aspirin 81 MG Tablet Take 81 mg by mouth daily. Active Multiple Vitamins-Mineral s (MULTIVITAMIN PO) Take 1 Tab by mouth daily. Active Turmeric 500 MG Capsule Take 500 mg by mouth daily. Active verapamil (CALAN SR; ISOPTIN SR) 180 MG Tablet Controlled Release Take 1 Tab by mouth daily. 30 Tab 11/11/2018 Active Encounters Date Type Department Care Team Description 04/16/2025 1:00 PM [facility] [address] [place] [address] Timmy Pang PAC Carpal tunnel syndrome on right Discharge Disposition: Discharged to home or Selfcare 04/14/2025 Travel from Last 3 Months Social History Tobacco Use Types Packs/Day Years Used Date Smoking Tobacco: Every Day Cigarettes Alcohol Use Standard Drinks/Week Comments Not Currently 0 (1 standard drink = 0.6 oz pur e alcohol) Comments No Sex and Gender Information Value Date Recorded Sex Assigned at Not on file Legal Sex Female 12:11 AM CDT Gender Identity Not on file Sexual Orientation Not on file Last Filed Vital Signs Vital Sign Reading Time Taken Comments Blood Pressure 144/73 11/11/2018 7:15 PM CDT Pulse 79 11/11/2018 7:15 PM CDT Temperature 36.6 C (97.9 F) 11/11/2018 4:55 PM CDT Respiratory Rate 16 11/11/2018 7:15 PM CDT Oxygen Saturation 96% 11/11/2018 7:15 PM CDT Inhaled Oxygen Concentration - - Weight 66.2 kg (146 lb) 11/11/2018 4:55 PM CDT Height 157.5 cm (5' 2) 11/11/2018 4:55 PM CDT Body Mass Index 26.7 11/11/2018 4:55 PM CDT Plan of Treatment Health Maintenance Due Date Last Done Comments DEXA Bone Density 1950 Hepatitis C Virus (HCV) Screening 1950 TdaP Immunization 1950 Cologuard 11/25/1996 Immunochemical Fecal Occult Blood 11/25/1996 Medicare Initial AWV [id number] 11/19/2017 Influenza Immunization (#1) 2025 07/03/2017 SARS-COV-2 Immunization ( season) 2025 08/11/2021, 10/30/2020, 10/09/2020 Mammogram 04/16/2026 04/16/2025, 08/08/2023, 04/07/2023, Additional history exists Respiratory Syncytial Virus (RSV) Immunization (Adult) (1 - 1-dose 75+ series) 11/25/2026 Colonoscopy 01/04/2034 01/05/2024 Colorectal Cancer Screening 01/04/2034 Pneumococcal Immunization (50+ years) Completed 09/01/2023 Pneumococcal Immunization Combined Discontinued 09/01/2023 Zoster Immunization Completed 12/20/2023, Hepatitis B Immunization Aged Out No longer eligible based on patient's age to complete this topic Human Papillomavirus (HPV) Immunization Aged Out No longer eligible based on patient's age to complete this topic Meningococcal Immunization (ACWY) Aged Out No longer eligible based on patient's age to complete this topic Rotavirus Immunization Aged Out No lo nger eligible based on patient's age to complete this topic Procedures Procedure Name Priority Date/Time Associated Diagnosis Comments EMG 1 EXTREMITY W/WO PARASPINAL RT Routine 04/16/2025 12:00 AM CDT Carpal tunnel syndrome on right from Last 3 Months Results * EMG 1 EXTREMITY W/WO PARASPINAL RT (04/16/2025 12:00 AM CDT) 04/16/2025 Narrative SCAN - 04/16/2025 12:00 AM CDT John Canada MD 04/16/2025 8:23 PM Electromyogram Procedure Note Date of Procedure: 04/16/2025 Pre-operative Diagnosis: right upper extremity numbness, tingling and pain. Post-operative Diagnosis: Indications: Diagnostic Procedure Details Motor Nerve Conduction Studies: The right median motor nerve shows prolonged distal motor latency, normal motor amplitude and decreased conduction velocity. The right ulnar motor nerve shows normal distal motor latency, normal motor amplitude and normal conduction velocity. Sensory Nerve Conduction Studies: The right radial sensory nerve shows normal sensory nerve peak latency and normal sensory amplitude. Median ulnar comparisons were not reactive, on the right. Median radial comparisons were not reactive, on the right. The right median sensory nerve peak latency was not reactive. The right ulnar sensory nerve shows normal sensory nerve peak latency and normal sensory amplitude. F waves: F wave latency for the right median nerve was normal. F wave latency for the right ulnar nerve was normal. EMG: Needle EMG of the right FDI and APB were normal. Summary This is an abnormal study consistent with moderate right median nerve entrapment at the flexor retinaculum. Clinical correlation is recommended. Timmy Pang [facility] NEUROLOGY ORDERABLES Final Re sult SCAN from Last 3 Months Insurance MEDICARE AETNA SENIOR SUPPLEMENTAL Care Teams Comic Book Designer Relationship Specialty Start Date End Date Timmy Pang PAC [address] [place] [id number] PCP - General Physician Granite Worker 11/11/18
[2025-07-01 13:01] VITALS: BP 153/85; PULSE 77; RESP 16; TEMP 36.6; O2SAT 97
[2025-07-01 13:04] VITALS: BMI 29.1
[2025-07-01] MEDS: ACETAMINOPHEN 500 MG TABLET 1000 MG PO (13:07)
--- NOTE | 2025-07-01 13:31 | WPDHPUPDATE1 ---
History and Physical Update Update Date/Time: 07/01/25 13:31 History and Physical has been reviewed, including an updated exam of the patient. There are NO changes in the patient's condition. Risks, benefits, and alternatives have been discussed and questions answered. Patient agrees to proceed with procedure.
[2025-07-01 13:43] VITALS: PULSE 70; RESP 16
[2025-07-01 13:51] VITALS: BP 144/69; PULSE 72; RESP 16; O2SAT 96
[2025-07-01] MEDS: BUPIVACAINE/EPINEPHRINE 0.5% 30 ML VIAL 10 ML INFILTRATE (13:53)
[2025-07-01 14:01] VITALS: BP 161/78; PULSE 71; RESP 16; O2SAT 99
[2025-07-01 14:10] VITALS: BP 153/74; PULSE 72; RESP 16; O2SAT 96
[2025-07-01 14:20] VITALS: BP 141/66; PULSE 74; RESP 16; O2SAT 96
--- NOTE | 2025-07-01 16:16 | P.OP_ITS ---
Procedure Note - Detailed Date of Procedure 07/01/25 Pre-op Diagnosis Right hand carpal tunnel syndrome and right ring trigger finger Post-op Diagnosis Same Procedure Performed Right carpal tunnel release and right ring trigger finger release Surgeon Kameron Meade MD Privacy Analyst Britta Portillo PA-C Anesthesia Local Description of Procedure The hand was prepped and draped in the usual sterile fashion. The proposed incision was marked using typical anatomic landmarks. 10ML 0.5% Marcaine with epinephrine was injected along the incision line and at the distal forearm. 3ML placed at the trigger finger injection site. A longitudinal incision was taken sharply at the wrist. Dissection was brought down to the transverse carpal ligament. Under direct vision the ligament was incised sharply. The proximal release was carried out with dissection scissors. The contents of the carpal canal were protected with a [place] elevator. The transverse carpal ligament was confirmed to be widely patent. A transverse incision was created over the A1 olinda subcutaneous dissection was carried out bluntly. The A1 olinda was identified and visualized. It was released with the dissection scissors longitudinally. The tourniquet was released. The wounds were closed with horizontal mattress Prolene suture 3-0. A sterile bulky dressing was placed. Patient was brought to the recovery room in stable condition. Drains No Packing No Pathology None sent Complications No immediate complications Condition Stable Disposition PACU [facility] Billing Surgery - Charge Forward: Surgery Billing
== END 2025-07-01 14:45 | disposition home or self-care (01) ==
PROVIDERS: PCP Physician Assistant; Visit Provider Orthopaedic Surgery
PROC: (CPT 64721; principal; 2025-07-01 14:00)
PROC: (CPT 26055; 2025-07-01 14:00)
DX: G56.01 Carpal tunnel syndrome, right upper limb (principal); M65.341 Trigger finger, right ring finger; E78.5 Hyperlipidemia, unspecified; I10 Essential (primary) hypertension; M17.12 Unilateral primary osteoarthritis, left knee; M43.06 Spondylolysis, lumbar region; Z87.891 Personal history of nicotine dependence; Z80.9 Family history of malignant neoplasm, unspecified
CPT/HCPCS: 64721; 26055; A9270